=== PATIENT | female | born 1980 | race Caucasian/White ===

== ENCOUNTER 2017-10-25 20:33 | Emergency (ER) | payer MEDICAID, OTHER ==
[2017-10-25 20:50] VITALS: BP 124/84
[2017-10-25] MEDS ORDERED: Ipratropium 0.5MG/2.5ML NEB* 0.5 MG/2.5 ML NEB.SOLN INH ONE (21:04)
[2017-10-25] MEDS ORDERED: Albuterol 2.5 MG/3 ML NEB.SOL* (0.083%) INH ONE (21:04)
--- NOTE | 2017-10-25 21:04 | UC ---
Respiratory Complaint HPI - HPI Summary HPI Summary: C/O cough with SOB over the past 3 days. Getting worse and making anxiety worse. Congestion with sinus pain. Nebulizer has been helping. - History of Current Complaint Chief Complaint: UCGeneralIllness Stated Complaint: SOB Time Seen by Provider: 10/25/17 20:55 Hx Last Menstrual Period: 10/08/17 - Allergies/Home Medications Allergies/Adverse Reactions: Allergies Allergy/AdvReac Type Severity Reaction Status Date / Time Hydrocodone AdvReac Itching Verified 10/25/17 20:50 Home Medications: Home Medications Cyclobenzaprine TAB* [Flexeril 10 MG TAB*] 10 mg PO TID PRN 10/25/17 [History Confirmed 10/25/17] Escitalopram (NF) [Lexapro 20 mg (NF)] 20 mg PO DAILY 10/25/17 [History Confirmed 10/25/17] Ferrous Sulfate TAB* 325 mg PO DAILY 10/25/17 [History Confirmed 10/25/17] Loratadine [Claritin 10 MG CAP] 10 mg PO DAILY 10/25/17 [History Confirmed 10/25] Prazosin CAP* [Minipress CAP*] 1 mg PO BEDTIME 10/25/17 [History Confirmed 10/25] Vitamin [Calna] 1 tab PO DAILY 10/25/17 [History Confirmed 10/25/17] Zyrtec D 1 tab DAILY PRN 10/25/17 [History Confirmed 10/25/17] hydrOXYzine HCL TAB* [Atarax 25 MG TAB*] 25 mg PO QID PRN 10/25/17 [History Confirmed 10/25/17] PMH/Surg Hx/FS Hx/Imm Hx - Surgical History Surgical History: Yes Surgery Procedure, Year, and Place: tubal. 2004 - Social History Alcohol Use: None Substance Use Type: None Smoking Status (MU): Former Smoker When Did the Patient Quit Smoking/Using Tobacco: 5 years ago - Immunization History Most Recent Influenza Vaccination: 08/2017 Review of Systems Constitutional: Chills, Fatigue ENT: Sore Throat, Sinus Pain/Tenderness Respiratory: Shortness Of Breath, Cough Cardiovascular: Chest Pain Is Patient Immunocompromised?: No All Other Systems Reviewed And Are Negative: Yes Physical Exam Triage Information Reviewed: Yes Appearance: No Pain Distress, Well-Nourished, Ill-Appearing - mild Vital Signs: Initial Vital Signs Temp 98.9 F 10/25/17 20:37 Pulse 102 10/25/17 20:37 Resp 17 10/25/17 20:37 BP 124/84 10/25/17 20:37 Pulse Ox 100 10/25/17 20:37 Vital Signs Reviewed: Yes Eyes: Positive: Conjunctiva Clear ENT: Positive: Pharynx normal, TMs normal, Sinus tenderness - frontal Neck exam: Normal Respiratory: Positive: Wheezing - diffuse expiratory wheeze. Negative: Chest non-tender - tender anterior chest wall bilateral costochondral junction. Cardiovascular Exam: Normal Abdomen Description: Positive: Nontender Musculoskeletal Exam: Normal Neurological Exam: Normal Psychological Exam: Normal Skin Exam: Normal UC Diagnostic Evaluation - Laboratory O2 Sat by Pulse Oximetry: 100 Re-Evaluation - Re-Evaluation First Eval Re-Evaluation Time: 22:07 Change: Improved - breathing is better. Respiratory Course/Dx - Differential Dx/Diagnosis Differential Diagnosis/HQI/PQRI: Asthma, Lower Resp Infection, Sinusitis Provider Diagnoses: Acute URI. Acute bronchospasm. Acute sinusitis. Costochondritis Discharge - Discharge Plan Condition: Stable Disposition: HOME Prescriptions: Albuterol 2.5MG/3ML (0.083%)* [Ventolin 2.5 MG/3 ML NEB.ISIDRO*] 2.5 mg INH Q4H PRN #25 units PRN Reason: Wheezing Amoxicillin PO (*) [Amoxicillin 875 MG (*)] 875 mg PO BID #20 tab predniSONE TAB* [Deltasone TAB*] 20 mg PO DAILY #18 tab Patient Education Materials: Upper Respiratory Infection (ED), Bronchospasm (ED ), Prednisone (By mouth), Sinusitis (ED), Amoxicillin (By mouth) Forms: *Work Release Referrals: Xiang Laurent MD [Primary Care Provider] -
[2017-10-25] MEDS ORDERED: Amoxicillin PO (*) 500 MG CAP PO ONE (21:05)
[2017-10-25] MEDS ORDERED: methylPREDNISolone 125 MG* 2 ML VIAL IM ONE (21:06)
[2017-10-25] MEDS ORDERED: Indomethacin CAP* 25 MG CAP PO ONE (21:52)
[2017-10-25] MEDS ORDERED: Albuterol HFA INHALER* 8 gm MDI INH ONE (22:08)
== END 2017-10-25 22:28 | disposition home or self-care (01) ==
LOC: UCCORT 20:33
DX: J06.9 Acute upper respiratory infection, unspecified (principal); J98.01 Acute bronchospasm; J01.90 Acute sinusitis, unspecified; M94.0 Chondrocostal junction syndrome [Tietze]; Z88.5 Allergy status to narcotic agent; Z87.891 Personal history of nicotine dependence
CPT/HCPCS: 96372; 99213; A9270-GY; G0463; J2930; J7644

== ENCOUNTER 2017-10-29 17:47 | Emergency (ER) | payer OTHER ==
--- OUTSIDE RECORDS SUMMARY | 2017-10-29 17:57 | XMS REPORT ---
:1980 External Reference #:[id number] Author Organization [facility] Address [address] [place] [address] Phone [phone] Care Team Providers Name Role Phone Miguel Melendez MD Care Team Information Communications Intern Unavailable Miguel Melendez MD Primary Care Physician Unavailable Payers Type Date Identification Numbers Payment Provider Subscriber Commercial Policy Number: [id number] [facility] Latasha Diaz PayID: [id number] [address] [place] [address] [place] Expires: 2017 Policy Number: [id number] Medicaid [place] Latasha Diaz PayID: [id number] [address] [place] [address] Problems Date Description Provider Status Onset: 10/28/2017 Viremia Jhonathan Sabillon MD Active Onset: 09/09/2017 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, subs encntr Onset: 09/09/2017 Allergy to other foods Jhonathan Sabillon MD Active Family History Date Family Member(s) Problem(s) Comments General Unknown Social History Type Date Description Comments Smoke-Free Home is smoke-free Pets 2 cats Pets 1 dog Cigarette Use Former Cigarette Smoker Smoking Patient is a former smoker Allergies, Adverse Reactions, Alerts Date Description Reaction Status Severity Comments 09/09/2017 Hydrocodone active Medications Medication Date Status Form Strength Qnty SIG Indications Ordering Provider Claritin 09/09 Active Tablets 10mg 30tab one Z91.018 s tablet by Holly Sabillon MD mouth every morning Zyrtec Allergy 09/09 Active Tablets 10mg 30tab one Z91.018 s tablet by Holly Sabillon MD mouth every evening Auvi-Q 09/09 Active Solution 0.3mg/0.3 2unit Use as .018 Auto-Inje ML s directed Holly Sabillon MD ct as needed for anaphylax is. Escitalopram Active Unknown Hydroxyzine HCL Active Epipen 2-Deshawn Active Unknown Ferrous Fumarate Active Tablets 324(106Fe ) mg Prazosin HCL Active Capsules 1mg Active Cyclobenzaprine Active Tablets 10mg Unknown Vital Signs Date Vital Result Comment 10/28/2017 Height 56 inches 4'8" Weight 190.00 lb BMI (Body Mass Index) 42.6 kg/m2 Heart Rate 85 /min Body Temperature 97.7 F O2 % BldC Oximetry 97 % 09/09/2017 BP Systolic 122 mmHg BP Diastolic 85 mmHg Height 56 inches 4'8" Weight 189.00 lb BMI (Body Mass Index) 42.4 kg/m2 Heart Rate 96 /min Respiratory Rate 16 /min Body Temperature 97.9 F O2 % BldC Oximetry 98 % Results Test Date Test Result H/L Range Note Order 10/28/2017 BioFire Syndromic Testing <pending> Order 09/09/2017 Epinephrine Injector Training <pending> Procedures Date CPT Code Description Status 09/09/2017 76542 Education/Training PT Self-Management Each 30Minutes Completed Indiv PT Encounters Type Date Location Provider CPT E/M Dx Office Visit 10/28/2017 4:00[place] [address] Z91.018 B34.9 Office Visit 09/09/2017 10:30[place] [address] Z91.018 T78.00xD Plan of Care No Information Available
--- OUTSIDE RECORDS SUMMARY | 2017-10-29 17:58 | XMS REPORT ---
:1980 External Reference #:[id number] Author Organization [facility] Address [address] [place] [address] Phone [phone] Care Team Providers Name Role Phone Miguel Melendez MD Care Team Information Engineer First Assistant Unavailable Miguel Melendez MD Primary Care Physician Unavailable Payers Type Date Identification Numbers Payment Provider Subscriber Commercial Policy Number: [id number] [facility] Latasha Diaz PayID: [id number] [address] [place] [address] [place] Expires: 2017 Policy Number: [id number] Medicaid [place] Latasha Diaz PayID: [id number] [address] [place] [address] Problems Date Description Provider Status Onset: 09/09/2017 Anaphylactic reaction due to Jhonathan [...] 09/09 Active Solution 0.3mg/0.3 2unit Use as Z91.018 Auto-Inje ML s directed Holly Sabillon MD ct as needed for anaphylax is. Escitalopram Active Unknown Hydroxyzine HCL Active Unknown Epipen 2-Deshawn Active Ferrous Fumarate Active Tablets 324(106Fe ) mg [...] Date Test Result H/L Range Note Order 09/09/2017 Epinephrine Injector Training <pending> Procedures Date CPT Code Description Status 09/09/2017 21387 Education/Training PT Self-Management Each 30Minutes Completed Indiv PT Encounters Type Date Location Provider CPT E/M Dx Office Visit 09/09/2017 10:30[place] [address] Z91.018 T78.00xD Plan of Care 09/09/2017 - Jhonathan Sabillon MDZ91.018 Allergy to other foodsNew Medication:Claritin 10 mgZyrtec Allergy 10 mgAuvi-Q 0.3 mg/0.3MLT78.00xD Anaphylactic reaction due to unspecified food, subs encntr
--- NOTE | 2017-10-29 18:02 | UC ---
Cardiac HPI - HPI Summary HPI Summary: 37 year old female presents with complains of left sided chest pain. - History of Current Complaint Chief Complaint: UCGeneralIllness Stated Complaint: CHEST PAIN/ANXIETY Time Seen by Provider: 10/29/17 18:02 Hx Obtained From: Patient Hx Last Menstrual Period: 10/08/17 Onset/Duration: Sudden Onset Initial Severity: Moderate Current Severity: Moderate Chest Pain Location: Left Anterior - Allergy/Home Medications Allergies/Adverse Reactions: Allergies Allergy/AdvReac Type Severity Reaction Status Date / Time Hydrocodone AdvReac Itching Verified 10/29/17 18:07 PMH/Surg Hx/FS Hx/Imm Hx Previously Healthy: Yes - Surgical History Surgical History: Yes Surgery Procedure, Year, and Place: tubal. 2004 - Family History Known Family History: Positive: None - Social History Alcohol Use: None Substance Use Type: None Smoking Status (MU): Former Smoker When Did the Patient Quit Smoking/Using Tobacco: 5 years ago - Immunization History Most Recent Influenza Vaccination: 08/2017 Review of Systems Constitutional: Negative Skin: Negative Eyes: Negative ENT: Negative Respiratory: Negative Cardiovascular: Chest Pain Gastrointestinal: Negative Genitourinary: Negative Motor: Negative Neurovascular: Negative Musculoskeletal: Negative Neurological: Negative Psychological: Negative All Other Systems Reviewed And Are Negative: Yes Physical Exam Triage Information Reviewed: Yes Appearance: Ill-Appearing Vital Signs Reviewed: Yes Eye Exam: Normal ENT Exam: Normal Dental Exam: Normal Neck exam: Normal Neck: Positive: 1 Respiratory Exam: Normal Cardiovascular Exam: Normal Abdominal Exam: Normal Musculoskeletal Exam: Normal Neurological Exam: Normal Psychological Exam: Normal Skin Exam: Normal - Clinical Impression Provider Diagnoses: chest pain Discharge - Discharge Plan Condition: Stable Disposition: OTHER Discharge Disposition Comment: patient suggested to go to the er Patient Education Materials: Chest Pain (ED) Referrals: Xiang Laurent MD [Primary Care Provider] - Additional Instructions: patient suggested to go to the er for chest pain
[2017-10-29 18:07] VITALS: BP 123/83
== END 2017-10-29 18:25 ==
LOC: UCCORT 17:47
DX: R07.89 Other chest pain (principal); F41.9 Anxiety disorder, unspecified; Z88.5 Allergy status to narcotic agent; Z87.891 Personal history of nicotine dependence
CPT/HCPCS: 93005; 99212; G0463

== ENCOUNTER 2018-01-21 11:43 | Emergency (ER) | payer OTHER ==
[2018-01-21 12:26] VITALS: BP 124/85
--- NOTE | 2018-01-21 13:02 | UC ---
Lower Extremity/Ankle HPI - HPI Summary HPI Summary: pt is c/o pain to her R second toe and notes that it looks purple. it is painful to walk on. she can not recall any injury. she notes a hx of chronic R knee pain from tendinitis and that is worse from favoring the foot. pt denies hx diabetes and neuropathy. - History of Current Complaint Chief Complaint: UCLowerExtremity Stated Complaint: RIGHT KNEE/FOOT COMPLAINT Time Seen by Provider: 01/21/18 12:40 Hx Obtained From: Patient Hx Last Menstrual Period: 12/27/17 Pain Intensity: 5 Aggravating Factor(s): Standing, Ambulation Alleviating Factor(s): Rest Able to Bear Weight: No - Allergies/Home Medications Allergies/Adverse Reactions: Allergies Allergy/AdvReac Type Severity Reaction Status Date / Time hydrocodone Allergy Itching Verified 01/21/18 12:17 kiwi Allergy Anaphylatic Verified 01/21/18 12:17 Shock strawberry Allergy Anaphylatic Verified 01/21/18 12:17 Shock PMH/Surg Hx/FS Hx/Imm Hx - Additional Past Medical History Additional PMH: Low back pain, tendinitis R knee, allergies Psychological History: Anxiety, Depression, Post Traumatic Stress Disorder - Surgical History Surgical History: Yes Surgery Procedure, Year, and Place: tubal. 2004 - Family History Known Family History: Positive: None - Social History Alcohol Use: None Substance Use Type: None Smoking Status (MU): Former Smoker When Did the Patient Quit Smoking/Using Tobacco: 13 years ago - Immunization History Most Recent Influenza Vaccination: 08/2017 Vaccination Up to Date: Yes Review of Systems Constitutional: Negative Skin: Negative Eyes: Negative ENT: Negative Respiratory: Negative Cardiovascular: Negative Gastrointestinal: Negative Genitourinary: Negative Motor: Negative Neurovascular: Negative Musculoskeletal: Other: - Pain R knee and R 2nd toe Neurological: Negative Psychological: Negative Is Patient Immunocompromised?: No All Other Systems Reviewed And Are Negative: Yes Physical Exam Triage Information Reviewed: Yes Completion Of Physical Exam Limited Due To: Extremis Vital Signs: Initial Vital Signs Temp 98.5 F 01/21/18 12:21 Pulse 93 01/21/18 12:21 Resp 20 01/21/18 12:21 BP 124/85 01/21/18 12:21 Pulse Ox 98 01/21/18 12:21 Vital Signs Reviewed: Yes Eyes: Positive: Conjunctiva Clear ENT: Positive: Normal ENT inspection Neck: Positive: Supple, Nontender Respiratory: Positive: Lungs clear Cardiovascular: Positive: RRR, No Murmur Abdomen Description: Positive: Nontender, No Organomegaly, Soft Bowel Sounds: Positive: Present Musculoskeletal: Positive: Other: - LLE: bare for exam. Hip non tender. Knee without deformity or swelling, no laxity, tenderness is generalized. ankle non tender. foot has some very mild swelling and bruising to 2nd toe which is tender. rest of foot unremarkable. s/v/m is intact. Neurological: Positive: Alert Psychological: Positive: Age Appropriate Behavior Skin Exam: Normal Diagnostics - Radiology No standard instances Xray Interpretation: No Acute Changes Radiology Interpretation Completed By: Radiologist Lower Extremity Course/Dx - Course Course Of Treatment: knee has no laxity. no concern for infection and is c/w pt 's chronic pain, she will resume the gabriela. no concern for infection of gout R foot. Toe is bruised based on exam. No fx. will tx post op shoe. - Differential Dx/Diagnosis Provider Diagnoses: Acute flare chronic R knee pain. Contusion R 2nd toe Discharge - Sign-Out/Discharge Documenting (check all that apply): Discharge - Discharge Plan Condition: Stable Disposition: HOME Patient Education Materials: Knee Pain (ED), Foot Contusion (ED) Referrals: Xiang Laurent MD [Primary Care Provider] - 7 Days - Billing Disposition and Condition Condition: STABLE Disposition: HOME
--- NOTE | 2018-01-21 13:13 | RAD ---
HISTORY: Pain in right foot, attention second toe COMPARISONS: None VIEWS: 3, Frontal, lateral, and oblique views of the right foot FINDINGS: BONE DENSITY: Normal. BONES: There is no displaced fracture. JOINTS: There is no arthropathy. ALIGNMENT: There is no dislocation. SOFT TISSUES: Unremarkable. OTHER FINDINGS: None. IMPRESSION: NO ACUTE OSSEOUS INJURY. IF SYMPTOMS PERSIST, RECOMMEND REPEAT IMAGING.
== END 2018-01-21 13:43 | disposition home or self-care (01) ==
LOC: UCCORT 11:43
DX: S90.121A Contusion of right lesser toe(s) without damage to nail, initial encounter (principal); X58.XXXA Exposure to other specified factors, initial encounter; Y92.9 Unspecified place or not applicable; M25.561 Pain in right knee; G89.29 Other chronic pain; Z87.891 Personal history of nicotine dependence; Z88.5 Allergy status to narcotic agent
CPT/HCPCS: 99212; G0463

== ENCOUNTER 2018-03-20 08:53 | Day surgery (SDC) | payer OTHER ==
--- NOTE | 2018-03-19 06:29 | HP ---
PREOPERATIVE HISTORY AND PHYSICAL: DATE OF ADMISSION/SURGERY: 03/20/18 ATTENDING SURGEON: Deanna Brown MD * (DICTATED BY JUSTO RAMOS) PROCEDURE: Right knee arthroscopic surgery, possible MPFL reconstruction with allograft. CHIEF COMPLAINT: Right knee. 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 She has failed conservative measures such as a brace and therapy and has therefore, agreed to undergo a right knee arthroscopic surgery, possible MPFL reconstruction with allograft with Dr. Brown on 03/20/18. The patient states that she had a recent fall. She did have the brace on it. Denies any dislocation, but she tripped over a dog and has had mild increase in pain in the medial aspect of the knee since. PAST MEDICAL HISTORY: 1. Depression. 2. Anxiety. 3. PTSD. 4. Borderline personality disorder. PAST SURGICAL HISTORY: 1. . 2. Tubal ligation. Denies prior complications with anesthesia. MEDICATIONS: 1. Escitalopram 20 mg 1 by mouth every day. 2. Loratadine 10 mg 1 by mouth daily. 3. Prazosin 1 tab every night at bedtime. 4. vitamin once daily. 5. Ferrous sulfate 325 mg once daily. 6. Hydroxyzine 25 mg 1 to 2 tabs every 6 to 8 hours as needed for pruritus. 7. Cyclobenzaprine 10 mg 1 every 8 hours as needed for muscle spasms. 8. Montelukast 10 mg 1 by mouth every day. ALLERGIES: HYDROCODONE BITARTRATE, KIWI JUICE, STRAWBERRIES, and ADHESIVE. FAMILY HISTORY: She was adopted, unknown. SOCIAL HISTORY: She lives with her family. 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 She is a former smoker, quit 10 years ago. She denies alcohol use. She exercises occasionally. She is right hand dominant. REVIEW OF SYSTEMS: A 14-point review of systems was reviewed with the patient. Positive for current complaint; otherwise, negative. Denies chest pain, shortness of breath, fever, chills, history of DVT or PE, history of bleeding disorder, history of MRSA. PHYSICAL EXAMINATION GENERAL: A 37-year-old well-developed, well-nourished female, in no acute distress. Alert and oriented x3. Appropriate mood and affect. Appropriate balance and coordination of the lower extremities. HEENT: Normocephalic, atraumatic. PERRLA. Throat: Clear. NECK: Supple. CARDIO: Regular rate and rhythm. S1, S2. No murmurs, gallops, or rubs. No edema. ABDOMEN: Positive bowel sounds. Soft, nontender. NEURO: Alert and oriented x3. Cranial nerves grossly intact. Sensation is intact to light touch. MUSCULOSKELETAL: Right lower extremity, skin is intact. No warmth or erythema. Mild valgus deformity. Tenderness over the medial and lateral patellar facet. Range of motion 0 to 125. Mild effusion. +2 lateral glide of the patella with apprehension. Able to do a straight leg raise with minimal lag. Stable varus and valgus stress. Stable Kristin. Negative posterior drawer. Calves soft, nontender. +2 PT pulses. +5/5 strength with dorsiflexion and plantarflexion. Sensation is intact to light touch distally. DIAGNOSTIC STUDIES: Multiple view x-rays and MRI reveal no patella vianney, minimal arthritic changes, ACL and PCL intact, no obvious medial or lateral meniscus tears, possible stretching of the MPFL. It does not appear torn. Multiple view x-rays of the right knee obtained today in clinic reveal no evidence of acute fracture or dislocation after her injury. ASSESSMENT AND PLAN: The patient is scheduled to undergo a right knee arthroscopic surgery, possible MPFL reconstruction with allograft with Dr. Brown on 03/20/18. She will follow up 10 to 14 days postop for followup and suture removal. Percocet will be used for postop pain management. JUSTO RAMOS [id number]/[facility] #: [id number] [facility]ITALTonia
[~2018-03-20 08:53] MED LIST: Buffered Lidocaine 0.9% SYRIN* 5 ML/SYR SYRINGE INTRADERM ONE; Buffered Lidocaine 0.9% SYRIN* 5 ML/SYR SYRINGE ONE; Dexamethasone TAB* 4 MG ONE; Dexamethasone TAB* 4 MG PO ONE; DiMENhydriNATE IV* 50 MG/ML VIAL IV PUSH PRN; Famotidine IV* 10 MG/ML 2 ML (20 mg) IV ONE; Famotidine IV* 10 MG/ML 2 ML (20 mg) ONE; Morphine INJ* 2 MG/ML 1 ML CARPUJECT IV PRN; Naloxone* 0.4 MG/ML 1 ML VIAL IV PRN; Ondansetron INJ* 2 MG/ML VIAL ONE; Ondansetron ODT TAB* 4 MG ONE; PROCHLORPERAZINE INJ 5 MG/ML 2 ML VIAL IV PRN; Scopolamine 1.5 mg* PATCH TRANSDERM PRN; ceFAZolin 2 GM PREMIX (*) 2 GM/50 ML BAG IVPB ONE; fentaNYL* 50 MCG/ML 2 ML VIAL (100 MCG VIAL) IV PRN; oxyCODONE/Acetamin 5/325 MG* TAB PO PRN
[2018-03-20] MEDS ORDERED: Midazolam* 1 MG/ML 5 ML VIAL (5 MG) ONE (10:20)
[2018-03-20] MEDS ORDERED: fentaNYL* 50 MCG/ML 2 ML VIAL (100 MCG VIAL) ONE (10:20)
[2018-03-20] MEDS ORDERED: Lidocaine 1% MPF wEPI 200,000* 30 ML SDV ONE (11:06)
[2018-03-20] MEDS ORDERED: Bupivacaine 0.5% SDV PF* 30ML VIAL ONE (11:07)
[2018-03-20] MEDS ORDERED: PROCHLORPERAZINE INJ 5 MG/ML 2 ML VIAL ONE (11:33)
[2018-03-20] MEDS ORDERED: Lidocaine 2% PF * 5 ML VIAL ONE (11:33)
[2018-03-20] MEDS ORDERED: Ketorolac INJ* 30 MG/ML 1 ML VIAL ONE (11:33)
[2018-03-20] MEDS ORDERED: Propofol* 10 MG/ML 20 ML BTL IV PUSH ONE (11:33)
[2018-03-20] MEDS ORDERED: hydrALAZINE IV* 20 MG/ML VIAL ONE (11:56)
[2018-03-20] MEDS ORDERED: Labetalol IV* 5 MG/ML 20 ML VIAL ONE (11:56)
[2018-03-20] MEDS ORDERED: methylPREDNISolone ACETATE 80* 80 MG/ML 1 ML VIAL ONE (11:58)
[2018-03-20] MEDS ORDERED: oxyCODONE/Acetamin 5/325 MG* TAB ONE (13:18)
[2018-03-20 14:09] VITALS: BP 118/77
--- NOTE | 2018-03-21 09:54 | OP ---
OPERATIVE REPORT: DATE OF OPERATION: 03/20/18 DATE OF : 78 SURGEON: Deanna Brown MD MEAT SELECTOR: JUSTO Morales An veterinary technician assistant was needed for the entirety of the case for positioning, retraction, thought of possibly having to do a large open procedure in association with the case. PRE-OP DIAGNOSES: Right knee possible patellar instability with a lateral meniscus tear and persiste nt pain refractory to conservative management. POST-OP DIAGNOSIS: Demonstrates a lateral meniscus tear with significant impingement. OPERATIVE PROCEDURE: 1. Right knee arthroscopy with synovectomy, anteriorly medially, with a plica. 2. Partial lateral meniscectomy. 3. Lateral release. 4. Injection of 80 mg of Depo-Medrol. INDICATIONS: Latasha Diaz has had an over 10-year history of knee pain. She reports multiple sublu xations and dislocations. She has persistent pain. She feels giving away and has medially and later ally based pain. MRI was done that demonstrated no obvious signs or symptoms of dislocation. After extensive discussion of the risks and benefits of surgical versus nonoperative treatment, she has minerva cted to proceed with surgical treatment. We did discuss that I would do an examination under anesthe rudy to find out if she is actually unstable and if so, we can address that with an MPFL versus a medi al reefing with lateral release. We talked about possible meniscus surgery as well. Risks and benef its were discussed at length that included but are not limited to bleeding, infection, damage to nerv es, vessels, surrounding structures, wound nonhealing, persistent pain, need for further surgery, sca rring, stiffness, incomplete relief of symptoms, and risk of anesthesia. DESCRIPTION OF PROCEDURE: The patient was greeted in the preoperative area by the attending surgeon. Correct extremity was marked and consent was confirmed. The patient was brought back to the operat ing suite where she was placed in the supine position on the operating table. She underwent general anesthesia with LMA intubation, after which she was appropriately positioned in the bed. The lateral post was positioned. An unsterile tourniquet was placed high on the proximal thigh. An examination under anesthesia demonstrated range of motion 0 to 135 degrees, stable to varus-valgus stress, stabl e Kristin, 1+ anteromedial glide of the patella with a firm endpoint. No evidence of instability. T his was comparable to her contralateral side. There was no effusion. After appropriate surgical pause indicating site, side, procedure, and administration of antibiotics, the knee was intra-articularly injected with 1% lidocaine with epi. The lateral portal was made sha rply with an 11-blade. Scope was introduced into the joint. The joint was examined. The patellofem oral joint had grade 0 to 1 changes. There was no evidence of significant lateral subluxation. The scope was brought into the medial compartment. There was abundant synovitis and a plica medially wit h synovitis that extended anteriorly as well as around the patella itself. There was abrasion to the medial femoral condyle from the said plica. The anteromedial portal was made in an outside-in fashi on using an 18-gauge needle. Shaver was used to debride back the abundant synovitis as well as elect rocautery to maintain hemostasis. The medial compartment was examined. There were grade 0 changes i n the medial femoral condyle, medial plateau with a stable meniscus. The root was also visualized an d found to be intact. ACL and PCL were intact. There was some fraying of the cartilage about the no tch in the lateral aspect of the femoral condyle, which was debrided back using a shaver, but it was not a formal chondroplasty. The lateral compartment was examined. There were grade 1 to 2 changes i nvolving the lateral plateau and lateral femoral condyle had grade 0 changes. Lateral meniscus was i ntact and it was not torn, but there was fraying at the periphery, which was debrided back using the shaver. At this point, the synovectomy was completed using shaver and the electrocautery device to m aintain hemostasis. A small [id number] lateral release was done to gently balance the patell a to try to see if this ameliorates some of her symptoms. The wounds were copiously irrigated with s terile saline. The portals were closed with 3-0 nylon in an interrupted fashion. The knee was intra- articularly injected with 0.25% Marcaine plain as well as 80 mg of Depo- Medrol. Sterile dressings w ere applied. A Cryo/Cuff was placed. She was awoken from anesthesia and transferred to PACU in stab le condition. POSTOPERATIVE PLAN: She will be weightbearing as tolerated. She will be discharged on pain medicati on. DVT prophylaxis was considered, but deferred due to no previous personal or family history. I w ill see the patient back in 10 to 14 days. [id number]/[facility] #: [id number]
[2018-03-23] MEDS ORDERED: Scopolamine PATCH Remove* 1 NOTE MISC PATCH OFF ONE (05:49)
== END 2018-03-20 13:55 | disposition home or self-care (01) ==
LOC: OR 08:53
PROVIDERS: ATTEND Orthopaedic Surgery
DX: M23.200 Derangement of unspecified lateral meniscus due to old tear or injury, right knee (principal); M25.861 Other specified joint disorders, right knee; M67.51 Plica syndrome, right knee; M23.51 Chronic instability of knee, right knee; F41.8 Other specified anxiety disorders; F43.10 Post-traumatic stress disorder, unspecified; F60.3 Borderline personality disorder; Z87.891 Personal history of nicotine dependence; M25.461 Effusion, right knee
CPT/HCPCS: A9270-GY; J0360; J0690; J0780; J1040; J1885; J2001; J2250; J2704; J3010; J8540

== ENCOUNTER 2018-08-09 13:20 | Emergency (ER) | payer OTHER ==
[2018-08-09 14:22] VITALS: BP 124/85
[2018-08-09] MEDS ORDERED: Ketorolac INJ* 60 MG/2 ML VIAL IM ONE (15:02)
--- NOTE | 2018-08-09 15:32 | UC ---
UC General HPI - HPI Summary HPI Summary: PT IS C/O "MUSCLE TIGHTNESS" TO THE INSIDE OF HER R SHOULDER BLADE AFTER LIFTING AND MOVING 4 DAYS AGO. SELF TX'ING WITH MOTRIN AND FLEXERIL WITH NO RELIEF. NO TX TODAY. NO CP, COUGH OR SOB. - History of Current Complaint Chief Complaint: UCUpperExtremity Stated Complaint: RIGHT SHOULDER PAIN Time Seen by Provider: 08/09/18 14:54 Hx Obtained From: Patient Hx Last Menstrual Period: 08/06/18 Onset/Duration: Gradual Onset Timing: Constant Pain Intensity: 6 Aggravating: ANY TYPE OF MOVEMENT Associated Signs & Symptoms: Negative: Chest Pain, Fever, SOB, Wheezing - Allergy/Home Medications Allergies/Adverse Reactions: Allergies Allergy/AdvReac Type Severity Reaction Status Date / Time ondansetron [From Zofran] Allergy Severe ANAPHYLAXIS Verified 08/09/18 14:10 hydrocodone Allergy Itching Verified 08/09/18 14:10 kiwi Allergy Anaphylatic Verified 08/09/18 14:10 Shock strawberry Allergy Anaphylatic Verified 08/09/18 14:10 Shock Seasonal Allergies Allergy Sneezing Uncoded 08/09/18 14:10 Home Medications: Home Medications Vitamin TAB* 1 tab DAILY 08/09/18 [History Confirmed 08/09/18] buPROPion SR TAB* [Wellbutrin SR TAB*] 150 mg QAM 08/09/18 [History Confirmed ] PMH/Surg Hx/FS Hx/Imm Hx - Additional Past Medical History Additional PMH: ALLERGIES Psychological History: Anxiety, Depression - Surgical History Surgical History: Yes Surgery Procedure, Year, and Place: Tubal ligation 2004. 2004. RIGHT Knee February 2018 - Family History Known Family History: Positive: Unknown - Social History Occupation: Disabled Alcohol Use: None Substance Use Type: None Smoking Status (MU): Former Smoker When Did the Patient Quit Smoking/Using Tobacco: 13 years ago - Immunization History Most Recent Influenza Vaccination: 08/2017 Vaccination Up to Date: Yes Review of Systems Constitutional: Negative Skin: Negative Eyes: Negative ENT: Negative Respiratory: Negative Cardiovascular: Negative Gastrointestinal: Negative Genitourinary: Negative Motor: Negative Neurovascular: Negative Musculoskeletal: Other: - PAIN R MEDIAL SCAPULA MM Neurological: Negative Psychological: Negative All Other Systems Reviewed And Are Negative: Yes Physical Exam Triage Information Reviewed: Yes Appearance: Well-Appearing Vital Signs: Initial Vital Signs Temp 97.6 F 08/09/18 14:13 Pulse 98 08/09/18 14:13 Resp 16 08/09/18 14:13 BP 124/85 08/09/18 14:13 Pulse Ox 98 08/09/18 14:13 Vital Signs Reviewed: Yes Eyes: Positive: Conjunctiva Clear ENT: Positive: Normal ENT inspection Neck: Positive: Supple, No Lymphadenopathy, Other: - R trapzius muscle spasm with decreased rom to neck and R shoulder due to spasm's. Respiratory: Positive: Lungs clear, Normal breath sounds, No respiratory distress Cardiovascular: Positive: RRR, No Murmur Abdomen Description: Positive: Nontender, No Organomegaly, Soft Bowel Sounds: Positive: Present Musculoskeletal: Positive: No Edema, Other: - c=-spine is non tender. Neurological: Positive: Alert Psychological: Positive: Age Appropriate Behavior Skin Exam: Normal Skin: Negative: rashes Re-Evaluation - Re-Evaluation First Eval Change: Improved - improved rom post tx and pt notes less pain. Course/Dx - Course Course Of Treatment: no concern for spinal or cardiothoracic pathology. failed motrin thus will d/c and tx with prednisone/ pt to continue her flexeril routinely. - Differential Dx - Multi-Symptom Provider Diagnoses: R TRAPEZIUS MUSCLE SPASM Discharge - Sign-Out/Discharge Documenting (check all that apply): Patient Departure All imaging exams completed and their final reports reviewed: No Studies - Discharge Plan Condition: Stable Disposition: HOME Prescriptions: predniSONE TAB* [Deltasone 20 MG TAB*] 40 mg PO DAILY 5 Days #10 tab Patient Education Materials: Muscle Strain (ED) Referrals: Xiang Louis MD [Primary Care Provider] - Gerry Aparicio MD [Medical Doctor] - Additional Instructions: STOP THE MOTRIN. TAKE YOUR FLEXERIL 10MG THREE TIMES DAILY. FOLLOW UP WITH DR LOUIS OR DR APARICIO IN 5 DAYS FOR A RECHECK OR SOONER IF WORSE. - Billing Disposition and Condition Condition: STABLE Disposition: Home
== END 2018-08-09 15:42 | disposition home or self-care (01) ==
LOC: UCCORT 13:20
DX: M62.838 Other muscle spasm (principal); Z88.5 Allergy status to narcotic agent; Z88.8 Allergy status to other drugs, medicaments and biological substances; Z87.891 Personal history of nicotine dependence
CPT/HCPCS: 96372; 99212; G0463; J1885

== ENCOUNTER 2018-08-26 12:45 | Emergency (ER) | payer OTHER ==
[2018-08-26 13:12] VITALS: BP 129/84
[2018-08-26] MEDS ORDERED: Lidocaine 1%* 5 ML VIAL INJ ONE (13:16)
--- NOTE | 2018-08-26 13:41 | UC ---
Laceration HPI - HPI Summary HPI Summary: 37 yo F c/o laceration to navel. Patient had a belly ring which became caught on an object in a dog cage and was ripped from her abdomen, less than 1 hr ago. She now has 2 flaps which formerly formed a ring in her skin. no active bleeding. Last tetanus was 2015. family hx non-contributory - History Of Current Complaint Chief Complaint: UCSkin Stated Complaint: RIPPED OUT NAVEL PIERCING Time Seen by Provider: 08/26/18 13:12 Hx Last Menstrual Period: 08/06/18 Pain Intensity: 5 - Allergies/Home Medications Allergies/Adverse Reactions: Allergies Allergy/AdvReac Type Severity Reaction Status Date / Time ondansetron [From Zofran] Allergy Severe ANAPHYLAXIS Verified 08/26/18 12:57 hydrocodone Allergy Itching Verified 08/26/18 12:57 kiwi Allergy Anaphylatic Verified 08/26/18 12:57 Shock strawberry Allergy Anaphylatic Verified 08/26/18 12:57 Shock Seasonal Allergies Allergy Sneezing Uncoded 08/26/18 12:57 Home Medications: Home Medications Fluticasone NASAL SPRAY 50MCG* [Flonase NASAL SPRAY 50MCG*] 1 spray BOTH NARES DAILY 08/26/18 [History Confirmed 08/26/18] Naproxen Sodium [Naprelan 500 mg] 500 mg PO Q12H 08/26/18 [History Confirmed ] PMH/Surg Hx/FS Hx/Imm Hx Previously Healthy: Yes Psychological History: Post Traumatic Stress Disorder - Surgical History Surgical History: Yes Surgery Procedure, Year, and Place: Tubal ligation 2004. 2004. RIGHT Knee February 2018 - Family History Known Family History: Positive: None, Unknown - Social History Alcohol Use: None Substance Use Type: None Smoking Status (MU): Former Smoker When Did the Patient Quit Smoking/Using Tobacco: 13 years ago - Immunization History Most Recent Influenza Vaccination: 08/2017 Most Recent Tetanus Shot: 2016 Vaccination Up to Date: Yes Review of Systems Constitutional: Negative Skin: Other - lac All Other Systems Reviewed And Are Negative: Yes Physical Exam Triage Information Reviewed: Yes Appearance: Well-Appearing, No Pain Distress, Well-Nourished Vital Signs: Initial Vital Signs Temp 97.8 F 08/26/18 13:05 Pulse 108 08/26/18 13:05 Resp 18 08/26/18 13:05 BP 129/84 08/26/18 13:05 Pulse Ox 98 08/26/18 13:05 Vital Signs Reviewed: Yes Eyes: Positive: Conjunctiva Clear Respiratory: Positive: No respiratory distress, No accessory muscle use Abdominal Exam: Other - torn skin at navel Abdomen Description: Negative: Distended Musculoskeletal: Positive: Strength Intact Neurological: Positive: Alert Psychological: Positive: Normal Response To Family Skin Exam: Normal Laceration Repair - Laceration Repair 1 Description: Linear Laceration Size After Repair: Length (cm) - 0.25 Modified For Repair: No Type Injection: Local Anesthesia Used: 1.0% Lido Cleansing Completed Via Routine Prep: Yes Irrigation With Pressure Irrigation Device: Yes Closure Material: Sutures Closure Method: Single Layer Suture Of: Skin Suture Type: Prolene - 3 simple interupted sutures Laceration Course/Dx - Differential Dx - Laceration/Wound Differental Diagnoses: Laceration Provider Diagnoses: laceration Discharge - Sign-Out/Discharge Documenting (check all that apply): Patient Departure All imaging exams completed and their final reports reviewed: No Studies - Discharge Plan Condition: Stable Disposition: HOME Patient Education Materials: Laceration (ED), Care For Your Stitches (ED) Referrals: Xiang Laurent MD [Primary Care Provider] - Additional Instructions: Have sutures removed in 7 days - Billing Disposition and Condition Condition: STABLE Disposition: Home
== END 2018-08-26 14:26 | disposition home or self-care (01) ==
LOC: UCCORT 12:45
DX: S31.115A Laceration without foreign body of abdominal wall, periumbilic region without penetration into peritoneal cavity, initial encounter (principal); X58.XXXA Exposure to other specified factors, initial encounter; Z87.891 Personal history of nicotine dependence; Y92.9 Unspecified place or not applicable; Z88.8 Allergy status to other drugs, medicaments and biological substances; Z88.5 Allergy status to narcotic agent
CPT/HCPCS: 12001; 99212; G0463

== ENCOUNTER 2018-09-02 14:38 | Emergency (ER) | payer OTHER ==
[2018-09-02 14:53] VITALS: BP 124/84
--- NOTE | 2018-09-02 14:55 | UC ---
Skin Complaint HPI - HPI Summary HPI Summary: 37-year-old woman comes in to clinic today for suture removal from a laceration that occurred on August 26, 2018. Her bellybutton ring got ripped out and she had a laceration there that was sutured with 3 sutures here at the urgent care clinic. His been no drainage no pain no erythema. - History of Current Complaint Time Seen by Provider: 09/02/18 14:46 Stated Complaint: SUTURE REMOVAL Hx Last Menstrual Period: 08/06/18 - Allergy/Home Medications Allergies/Adverse Reactions: Allergies Allergy/AdvReac Type Severity Reaction Status Date / Time ondansetron [From Zofran] Allergy Severe ANAPHYLAXIS Verified 08/26/18 12:57 hydrocodone Allergy Itching Verified 08/26/18 12:57 kiwi Allergy Anaphylatic Verified 08/26/18 12:57 Shock strawberry Allergy Anaphylatic Verified 08/26/18 12:57 Shock Seasonal Allergies Allergy Sneezing Uncoded 08/26/18 12:57 Review of Systems Constitutional: Negative Skin: Other - SEE HPI Eyes: Negative ENT: Negative Respiratory: Negative Cardiovascular: Negative Gastrointestinal: Negative Motor: Negative Neurovascular: Negative Musculoskeletal: Negative Neurological: Negative Psychological: Negative Is Patient Immunocompromised?: No All Other Systems Reviewed And Are Negative: Yes PMH/Surg Hx/FS Hx/Imm Hx Previously Healthy: Yes Psychological History: Depression - Surgical History Surgical History: Yes Surgery Procedure, Year, and Place: Tubal ligation 2004. 2004. RIGHT Knee February 2018 - Family History Known Family History: Positive: None, Unknown Negative: Diabetes - Social History Alcohol Use: None Substance Use Type: None Smoking Status (MU): Former Smoker When Did the Patient Quit Smoking/Using Tobacco: 13 years ago - Immunization History Most Recent Influenza Vaccination: 08/2017 Most Recent Tetanus Shot: 2016 Vaccination Up to Date: Yes Physical Exam Triage Information Reviewed: Yes Appearance: Well-Appearing, No Pain Distress, Well-Nourished Eye Exam: Normal Eyes: Positive: Conjunctiva Clear Neck exam: Normal Neck: Positive: Supple Respiratory: Positive: No respiratory distress Musculoskeletal Exam: Normal Musculoskeletal: Positive: Strength Intact, ROM Intact Neurological Exam: Normal Neurological: Positive: Alert, Muscle Tone Normal Psychological Exam: Normal Psychological: Positive: Normal Response To Family, Age Appropriate Behavior Skin: Positive: Other - On the superior aspect of the umbilicus there is a healing wound with 3 interrupted sutures. There is no drainage no erythema. I removed the sutures. Course/Dx - Diagnoses Provider Diagnoses: SUTURE REMOVAL UMBILICUS Discharge - Sign-Out/Discharge Documenting (check all that apply): Patient Departure All imaging exams completed and their final reports reviewed: No Studies - Discharge Plan Condition: Stable Disposition: HOME Patient Education Materials: Stitches Removal (ED) Referrals: Xiang Laurent MD [Primary Care Provider] - Additional Instructions: FOLLOW UP WITH YOUR DOCTOR IF NOT COMPLETELY IMPROVED. GET RECHECKED FOR ANY WORSENING OF YOUR CONDITION OR QUESTIONS OR CONCERNS. - Billing Disposition and Condition Condition: STABLE Disposition: Home
== END 2018-09-02 14:58 | disposition home or self-care (01) ==
LOC: UCCORT 14:38
DX: S31.115D Laceration without foreign body of abdominal wall, periumbilic region without penetration into peritoneal cavity, subsequent encounter (principal); Z88.8 Allergy status to other drugs, medicaments and biological substances; Z88.5 Allergy status to narcotic agent; Z91.018 Allergy to other foods; Z91.048 Other nonmedicinal substance allergy status; Z87.891 Personal history of nicotine dependence; X58.XXXD Exposure to other specified factors, subsequent encounter

== ENCOUNTER 2018-09-11 15:28 | Emergency (ER) | payer OTHER ==
[2018-09-11 15:45] VITALS: BP 137/86
[2018-09-11] MEDS ORDERED: Ibuprofen TAB* 400 MG PO ONE (16:14)
--- NOTE | 2018-09-11 16:54 | UC ---
Knee Pain HPI - HPI Summary HPI Summary: Pt c/o sudden onset of right knee pain and decreased ROM after moving leg this morning in bed and "swinging it under her blankets" with sudden onset of pain, swelling and decreased ROM. Pt had meniscus repair previously on right knee. - History of Current Complaint Chief Complaint: UCLowerExtremity Stated Complaint: RIGHT KNEE PAIN Time Seen by Provider: 09/11/18 15:45 Hx Obtained From: Patient Hx Last Menstrual Period: 09/03/18 ?: No Onset/Duration: Sudden Onset, Lasting Hours, Still Present Severity Initially: Moderate Severity Currently: Moderate Pain Intensity: 6 Character: Dull, Aching, Stiffness Aggravating Factor(s): Movement, Weight Bearing, Prolonged Standing, Stairs Alleviating Factor(s): Rest, Position Associated Signs And Symptoms: Positive: Negative Able to Bear Weight: Yes - minimal - Risk Factors Septic Arthritis Risk Factor: Negative Gout Risk Factor: Negative - Allergies/Home Medications Allergies/Adverse Reactions: Allergies Allergy/AdvReac Type Severity Reaction Status Date / Time ondansetron [From Zofran] Allergy Severe ANAPHYLAXIS Verified 09/11/18 15:42 hydrocodone Allergy Itching Verified 09/11/18 15:42 kiwi Allergy Anaphylatic Verified 09/11/18 15:42 Shock strawberry Allergy Anaphylatic Verified 09/11/18 15:42 Shock Seasonal Allergies Allergy Sneezing Uncoded 09/11/18 15:42 PMH/Surg Hx/FS Hx/Imm Hx Previously Healthy: Yes - Surgical History Surgical History: Yes Surgery Procedure, Year, and Place: Tubal ligation 2004. 2004. RIGHT Knee February 2018 - Family History Known Family History: Positive: None, Unknown Negative: Diabetes - Social History Occupation: Works From/At Home Lives: With Family Alcohol Use: None Substance Use Type: None Smoking Status (MU): Former Smoker Have You Smoked in the Last Year: No When Did the Patient Quit Smoking/Using Tobacco: 13 years ago - Immunization History Most Recent Influenza Vaccination: 08/2017 Most Recent Tetanus Shot: 2016 Vaccination Up to Date: Yes Review of Systems All Other Systems Reviewed And Are Negative: Yes Constitutional: Positive: Negative Skin: Positive: Negative Eyes: Positive: Negative ENT: Positive: Negative Respiratory: Positive: Negative Cardiovascular: Positive: Negative Gastrointestinal: Positive: Negative Genitourinary: Positive: Negative Motor: Positive: Decreased ROM - right knee, Weakness - right knee Neurovascular: Positive: Negative Musculoskeletal: Positive: Arthralgia, Decreased ROM, Edema, Myalgia Neurological: Positive: Negative Psychological: Positive: Negative Is Patient Immunocompromised?: No Physical Exam Triage Information Reviewed: Yes Appearance: Pain Distress Vital Signs: Initial Vital Signs Temp 97.2 F 09/11/18 15:41 Pulse 88 09/11/18 15:41 Resp 16 09/11/18 15:41 BP 137/86 09/11/18 15:41 Pulse Ox 98 09/11/18 15:41 Vital Signs Reviewed: Yes Eye Exam: Normal ENT Exam: Normal Dental: Positive: Gross Decay/Caries @ Neck exam: Normal Respiratory Exam: Normal Respiratory: Positive: No respiratory distress Musculoskeletal: Positive: ROM Limited @ - right knee secondary to pain, no erythema, no swelling, lucas test negative Neurological Exam: Normal Psychological Exam: Normal Skin Exam: Normal Diagnostics - Laboratory Diagnostic Studies Completed/Ordered: IMPRESSION: Normal knee radiograph as described above. If the patient's symptoms persist, follow-up imaging is recommended Knee Pain Course/Dx - Differential Dx/Diagnosis Differential Diagnosis/HQI/PQRI: DVT, Fracture (Closed), Internal Derangement Of Knee Provider Diagnoses: right knee pain Discharge - Sign-Out/Discharge Documenting (check all that apply): Patient Departure All imaging exams completed and their final reports reviewed: Yes - Discharge Plan Condition: Stable Disposition: HOME Patient Education Materials: Knee Pain (ED) Referrals: Xiang Laurent MD [Primary Care Provider] - If Needed Deanna Brown MD [Medical Doctor] - As Soon As Possible - Billing Disposition and Condition Condition: STABLE Disposition: Home
== END 2018-09-11 17:14 | disposition home or self-care (01) ==
LOC: UCCORT 15:28
DX: M25.561 Pain in right knee (principal); Z88.5 Allergy status to narcotic agent; Z88.8 Allergy status to other drugs, medicaments and biological substances; Z87.891 Personal history of nicotine dependence
CPT/HCPCS: 99213; A9270-GY; G0463

== ENCOUNTER 2019-03-25 18:04 | Emergency (ER) | payer OTHER ==
--- OUTSIDE RECORDS SUMMARY | 2019-03-25 18:16 | XMS REPORT | Continuity of Care Document ---
:1980 External Reference #:[id number] Author Name Amanda Medina Care Team Providers Name Role Phone Xiang Laurent M.D. Primary Care Physician Unavailable Payers Date Identification Numbers Payment Provider Subscriber Policy Number: [id number] Santiago Diaz Group Number: [id number] [address] PayID: [id number] [place] [address] Problems Active Problems Provider Date Derangement of knee Deanna Brown MD Onset: 03/18/2019 Contusion of knee Deanna Brown MD Onset: 01/12/2019 Sprain of knee and leg Deanna Brown MD Onset: 09/15/2018 Synovitis and tenosynovitis Deanna Brown MD Onset: 05/28/2018 Current tear of medial cartilage AND/OR meniscus Deanna Brown MD Onset: of knee Complex tear of medial meniscus, current injury, Deanna Brown MD Onset: right knee, subsequent encounter Chronic instability of knee, right knee Deanna Brown MD Onset: 02/17/2018 Knee joint effusion Deanna Brown MD Onset: 02/17/2018 Family History Date Family Member(s) Observation Comments General No Current Problems Social History Type Date Description Comments Sex Unknown Marital Status Single Lives With Family 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 Smoking Status Reviewed: 03/18/19 But is using a non nicotine base that she vapes. Exercise Type/Frequency Exercises regularly Allergies, Adverse Reactions, Alerts Active Allergies Reaction Severity Comments Date Hydrocodone Bitartrate 01/26/2018 Kiwi Juice 01/26/2018 Strawberries 01/26/2018 Adhesive 01/26/2018 Medications Active Medications SIG Qnty Indications Ordering Date Provider Wheelchair regular 1uneric Garrett, 09/16/2018 [facility] wheelchair New dx:right knee pain Escitalopram Oxalate 1 by mouth every Unknown 20mg day Tablets Cetirizine HCL 1 by mouth every Unknown 10mg Tablets day Prazosin HCL 1 by mouth every 90caps Unknown 5mg Capsules day One Daily once a day Unknown Tablets Ferrous Sulfate take 1 tablet Unknown 325(65Fe) once daily. mg Tablets DR Hydroxyzine HCL 1-2 tablets by Unknown 25mg mouth every 6-8 Tablets hours as needed for pruritis. Cyclobenzaprine HCL 1 tablet by mouth Unknown 10mg q8 hours as Tablets needed muscle spasms Montelukast Sodium 1 by mouth every Unknown 10mg day Tablets Ria Allergy 1 tab by mouth Unknown 180mg every day Tablets History Medications Oxycodone-Acetaminophen 1-2 tabs by 30tabs Deanna Brown, 03/18/2018 - 5-325mg Tablets mouth every MD 05/05/2018 4-6 hours as needed for post op pain Loratadine 1 by mouth Unknown - 10mg Tablets every day 02/22/2019 Medications Administered in Office Medication SIG Qnty Indications Ordering Provider Date Celestone 3 mg and 3mg Gerry Aparicio MD 02/23/2019 Injection Records Fee Deanna Brown MD 11/17/2018 Injection Triamcinolone (Kenalog) Deanna Brown MD 10/08/2018 Injection Vital Signs Date Vital Result Comment 03/18/2019 3:03pm Height 64 inches 5'4" Weight 209.00 lb BP Systolic 134 mmHg BP Diastolic 82 mmHg Respiratory Rate 15 /min Pain Level 8 BMI (Body Mass Index) 35.9 kg/m2 03/01/2019 1:58pm Height 64 inches 5'4" Heart Rate 96 /min BP Systolic Sitting 122 mmHg BP Diastolic Sitting 96 mmHg Respiratory Rate 16 /min Pain Level 6 02/23/2019 11:38am Height 64 inches 5'4" Heart Rate 94 /min BP Systolic Sitting 130 mmHg BP Diastolic Sitting 86 mmHg Respiratory Rate 16 /min Pain Level 6 O2 % BldC Oximetry 97 % 02/09/2019 3:57pm Height 64 inches 5'4" Weight 205.00 lb BP Systolic 132 mmHg BP Diastolic 72 mmHg Respiratory Rate 16 /min Body Temperature 97.1 F Pain Level 0 BMI (Body Mass Index) 35.2 kg/m2 01/22/2019 11:06am Height 64 inches 5'4" Weight 205.00 lb patient stated Heart Rate 100 /min BP Systolic 128 mmHg BP Diastolic 90 mmHg Respiratory Rate 18 /min Body Temperature 97.7 F Pain Level 7 BMI (Body Mass Index) 35.2 kg/m2 01/12/2019 2:25pm Height 64 inches 5'4" Weight 207.00 lb Heart Rate 87 /min Body Temperature 96.8 F Pain Level 6 O2 % BldC Oximetry 98 % BMI (Body Mass Index) 35.5 kg/m2 10/08/2018 1:59pm Height 64 inches 5'4" Heart Rate 116 /min BP Systolic 118 mmHg BP Diastolic 72 mmHg Body Temperature 97.5 F Pain Level 5 09/15/2018 2:41pm Height 64 inches 5'4" Heart Rate 84 /min Respiratory Rate 17 /min Pain Level 6 05/28/2018 10:13am Height 64 inches 5'4" Weight 203.00 lb BP Systolic 128 mmHg BP Diastolic 72 mmHg Respiratory Rate 18 /min Pain Level 1 BMI (Body Mass Index) 34.8 kg/m2 04/02/2018 9:06am Height 64 inches 5'4" Weight 203.00 lb BP Systolic 136 mmHg BP Diastolic 80 mmHg Respiratory Rate 18 /min Body Temperature 98.2 F Pain Level 2 BMI (Body Mass Index) 34.8 kg/m2 03/17/2018 9:36am Height 64 inches 5'4" Weight 203.00 lb Heart Rate 100 /min BP Systolic 110 mmHg BP Diastolic 82 mmHg Body Temperature 97.4 F Pain Level 6 BMI (Body Mass Index) 34.8 kg/m2 02/17/2018 2:19pm Height 64 inches 5'4" Weight 195.00 lb BP Systolic 128 mmHg BP Diastolic 70 mmHg Respiratory Rate 18 /min Pain Level 5 BMI (Body Mass Index) 33.5 kg/m2 02/10/2018 1:06pm Height 64 inches 5'4" Weight 195.00 lb BP Systolic 138 mmHg BP Diastolic 82 mmHg Respiratory Rate 18 /min Body Temperature 98.1 F Pain Level 6 BMI (Body Mass Index) 33.5 kg/m2 01/26/2018 10:15am Height 64 inches 5'4" Weight 195.00 lb Heart Rate 70 /min BP Systolic Sitting 128 mmHg BP Diastolic Sitting 68 mmHg Respiratory Rate 16 /min Pain Level 6 ibuprofen for pain BMI (Body Mass Index) 33.5 kg/m2 Results Test Date Facility Test Result H/L Range Note Arthritis Panel 02/10/2018 [facility] Erythrocyte Sed 12 mm/Hr N 0-[address] [place] [address] [phone] Uric Acid 4.8 mg/dL N 2.3-6.6 Anti-Nuclear Antibody 0.7 U 1 Cyclic Citrullinated Peptide <15.6 U 2 Interpretation See Comment 3 Rheumatoid Factor <10 IU/mL 0-14 4 1 REFERENCE VALUE <=1.0 (Negative) 2 REFERENCE VALUE <20.0 (Negative) 3 Tests for antibodies to dsDNA and UNRULY antigens are not performed automatically unless the STACEY result is > or= 3.0 U. Studies performed at [facility] indicate that positive STACEY results <3.0 U are rarely accompanied by positive second order tests. Test Performed by: [facility] - [address] [address] 4 Performed by [email or web address], [address] [place] [id number] [email or web address], Carrington Lundberg MD - Lab. Director Test Performed by: [email or web address] [address] [place] [address] Procedures Date Code Description Status 02/23/2019 28010 Inject/Drain Joint/Bursa Major W/O US Completed 10/08/2018 92931 Inject/Drain Joint/Bursa Major W/O US Completed 03/20/2018 76091 Arthroscopy,Knee,Meniscectomy Medial Or Lateral Completed 03/20/2018 52016 Arthroscopy,Knee,Meniscectomy Medial Or Lateral Completed Encounters Type Date Location Provider Dx Diagnosis Office Visit 03/01/2019 Cipriano Aparicio, M22.2x1 [facility] 1:45p [facility] disorders, right knee AT [place] M25.461 Effusion, right knee M25.561 Pain in right knee Office Visit 02/23/2019 Orthopedic Gerry Medley M22.2x1 [facility] 11:30a [facility] Aparicio MD disorders, right AT [place] knee M25.461 Effusion, right knee M65.861 Other synovitis and tenosynovitis, right lower leg Office Visit 02/09/2019 3:30p Orthopedic Deanna Brown, S83.91xA Sprain of Services Of unspecified site [facility] of right knee, initial encounter M65.9 Synovitis and tenosynovitis, unspecified Office Visit 01/22/2019 11:00a Orthopedic Deanna Brown, S83.91xA Sprain of Services Of unspecified site C.[facility]. of right knee, initial encounter M65.9 Synovitis and tenosynovitis, unspecified Office Visit 01/12/2019 2:15p Cipriano Brown, S83.91xA Sprain of Services Of unspecified site C.M.A. of right knee, initial encounter S80.01xA Contusion of right knee, initial encounter Office Visit 10/08/2018 2:00p Cipriano Brown M65.9 Synovitis and Services Of MD wilson, C.M.A. unspecified S83.91xA Sprain of unspecified site of right knee, initial encounter M25.561 Pain in right knee Office Visit 09/15/2018 2:30p Cipriano Brown M65.9 Synovitis and Services Of MD wilson, C.M.A. unspecified M25.461 Effusion, right knee S83.91xA Sprain of unspecified site of right knee, initial encounter Office Visit 02/17/2018 2:15p Orthopedic Deanna Brown, M23.51 Chronic Services Of instability of C.M.A. knee, right knee M25.461 Effusion, right knee S83.231A Complex tear of medial mensc, current injury, r knee, init Office Visit 02/10/2018 1:00p Orthopedic Deanna Brown, M23.51 Chronic Services Of instability of C.M.A. knee, right knee M25.461 Effusion, right knee Office Visit 01/26/2018 Orthopedic Gerry Medley M22.2x1 [facility] 10:15a [facility] Farzad Aparicio MD disorders, right AT [place] knee Plan of Treatment Future Appointment(s):04/16/2019 10:15 am - Deanna Brown MD at [facility]03/18/2019 - Deanna Brown, MDM22.2x1 [facility]ell[facility]emoral disorders , right kneeM25.461 Effusion, right kneeS83.91xA Sprain of unspecified site of right knee, initial encounterNew Therapy:Physical TherapyFollow up:Follow up: 4-5 weeks
--- OUTSIDE RECORDS SUMMARY | 2019-03-25 18:16 | XMS REPORT | Continuity of Care Document ---
:1980 External Reference #:[id number] Demographics Address [birth year][address] [address] Home Phone [phone] Mobile Phone [phone] Preferred Language en Marital Status Not or Yazidi Affiliation Unknown Race White Ethnic Group Not or Author Name Yanni Hung Care Team Providers Name Role Phone Xiang Laurent MD Care Team Information Media Services Director Unavailable Xiang Laurent MD Primary Care Physician Unavailable Payers Date Identification Numbers Payment Provider Subscriber Policy Number: [id number] [facility] Latasha Diaz PayID: [id number] [address] [place] [address] Family History Date Family Member(s) Observation Comments Father 55 Father Unknown Mother due to Unknown Causes () - unknown Social History Type Date Description Comments Sex Unknown Tobacco Use Start: Unknown End: Used To Smoke Cigarettes But Unknown Quit. ETOH Use Rare Use Of Alcohol Recreational Drug Use Never Used Drugs Allergies, Adverse Reactions, Alerts Active Allergies Reaction Severity Comments Date Hydrocodone Itching Moderate 01/27/2019 Strawberries Difficulty breathing, Facial swelling, Severe 01/27/2019 Hives Kiwi Difficulty breathing, Facial swelling, Severe 01/27/2019 Hives Medications Active Medications SIG Qnty Indications Ordering Provider Date Tramadol HCL 1-2. tab q4h. for 20tabs José Miguel Remy, 03/02/2019 50mg pain M.D. Tablets Xyzal Allergy 24HR 1 by mouth every Unknown 5mg day Tablets Flonase Allergy 2 sprays each Unknown Relief nostril twice 50mcg/Act daily Suspension Nasacort Allergy 24HR 2 squirts each Unknown nostril every day 55mcg/Act Aerosol Bupropion HCL ER (SR) 1 Unknown 150mg Tablets ER 12HR Hydroxyzine HCL Unknown 10mg Tablets Claritin 1 by mouth every Unknown 10mg Capsules day Montelukast Sodium 1 by mouth every Unknown 10mg day Tablets Prazosin HCL Unknown 1mg Capsules Zyrtec Allergy 1 by mouth every Unknown 10mg day Capsules Ferrous Sulfate 1 by mouth 3 Unknown times a day 325(65Fe) mg Tablets Vital Signs Date Vital Result Comment 03/09/2019 11:20am Weight 209.00 lb Height 64 inches 5'4" BMI (Body Mass Index) 35.9 kg/m2 BP Systolic 134 mmHg BP Diastolic 87 mmHg Heart Rate 103 /min O2 % BldC Oximetry 98 % Body Temperature 95.6 F Pain Level 6 01/27/2019 11:54am Weight 203.00 lb Height 64 inches 5'4" BMI (Body Mass Index) 34.8 kg/m2 BP Systolic 129 mmHg BP Diastolic 86 mmHg Heart Rate 102 /min O2 % BldC Oximetry 96 % Body Temperature 97.6 F Crosby Score 9 Neck Circumference in inches 15 Pain Level 0 Procedures Date Code Description Status 03/02/2019 87475 Septoplasty Completed 03/02/2019 89010 Exc.Turbinate/Partial Or Complete Completed 01/27/2019 64332 Fiberoptic Laryngoscopy,Diag. Completed Encounters Type Date Location Provider Dx Diagnosis Office Visit 01/27/2019 Main Office José Miguel Remy M.D. J34.2 Deviated nasal 11:45a septum G47.9 Sleep disorder, unspecified R06.83 Snoring J34.3 Hypertrophy of nasal turbinates J31.0 Chronic rhinitis Plan of Treatment Future Appointment(s):06/09/2019 11:30 am - Sherry Tobias NP at Main Office
--- OUTSIDE RECORDS SUMMARY | 2019-03-25 18:16 | XMS REPORT | Continuity of Care Document ---
:1980 External Reference #:[id number] Demographics Address [birth year][address] [address] Mobile Phone [phone] Email Address Preferred Language en Marital Status Not or Samaritan Affiliation Unknown Race White Ethnic Group Not or Author Name Marty Juárez Care Team Providers Name Role Phone Xiang Laurent M.D. 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 Smoking Status Reviewed: 03/01/19 But is using a non nicotine base that she vapes. Exercise Type/Frequency Exercises regularly Allergies, Adverse Reactions, Alerts Active Allergies Reaction Severity Comments Date Hydrocodone Bitartrate 01/26/2018 Kiwi Juice 01/26/2018 Strawberries 01/26/2018 Adhesive 01/26/2018 Medications Active Medications SIG Qnty Indications Ordering Date Provider Wheelchair regular 1uneric Garrett, 09/16/2018 [facility] wheelchair New dx:right knee pain Escitalopram Oxalate [...] Triamcinolone (Kenalog) Deanna Brown MD 10/08/2018 Injection Immunizations Description No Information Available Vital Signs Date Vital Result Comment 03/01/2019 1:58pm Height 64 inches 5'4" Heart [...] Result H/L Range Note Arthritis Panel 02/10/2018 [facility] Erythrocyte Sed 12 mm/Hr N 0-[address] [place] [address] [phone] Uric Acid 4.8 mg/dL N 2.3-6.6 Anti-Nuclear Antibody 0.7 U 1 Cyclic Citrullinated Peptide <15.6 U 2 Interpretation See Comment 3 Rheumatoid Factor <10 IU/mL 0-14 4 1 REFERENCE VALUE <=1.0 (Negative) 2 REFERENCE VALUE <20.0 (Negative) 3 Tests for antibodies to dsDNA and UNRULY antigens are not performed automatically unless the STACEY result is > or= 3.0 U. Studies performed at [facility] indicate that positive STACEY results <3.0 U are rarely accompanied by positive second order tests. Test Performed by: [address] [address] Performed by [employer], [address] [place] [id number] [email or web address], Carrington Lundberg MD - Lab. Director Test Performed by: [employer] [address] [place] [address] Procedures Date Code Description Status 02/23/201973886 Inject/Drain Joint/Bursa Major W/O US Completed 10/08/2018 Inject/Drain Joint/Bursa Major W/O US Completed 03/20/2018 59784 Arthroscopy,Knee,Meniscectomy Medial Or Lateral Completed 03/20/2018 86356 Arthroscopy,Knee,Meniscectomy Medial Or Lateral Completed Encounters Type Date Location Provider Dx Diagnosis Office Visit 02/09/2019 Orthopedic Deanna Brown, S83.91xA Sprain of 3:30p Services Of Jesus Alberto BELLO unspecified site of right knee, initial encounter M65.9 Synovitis and tenosynovitis, unspecified Office Visit 01/22/2019 11:00a Orthopedic Deanna Brown S83.91xA Sprain of Services Of unspecified site C.M.A. of right knee, initial encounter M65.9 Synovitis and tenosynovitis, unspecified Office Visit 01/12/2019 2:15p Orthopedic Deanna Brown S83.91xA Sprain of Services Of unspecified site C.M.A. of right knee, initial encounter S80.01xA Contusion of right knee, initial encounter Office Visit 10/08/2018 2:00p Cipriano Brown M65.9 Synovitis and Services Of tenosynovibeverly, C.M.A. unspecified S83.91xA Sprain of unspecified site of right knee, initial encounter M25.561 Pain in right knee Office Visit 09/15/2018 2:30p Cipriano Brown M65.9 Synovitis and Services Of tenosynovibeverly, C.M.A. unspecified M25.461 Effusion, right knee S83.91xA Sprain of unspecified site of right knee, initial encounter Office Visit 02/17/2018 2:15p Cipriano Brown M23.51 Chronic Services Of instability of C.M.A. knee, right knee M25.461 Effusion, right knee S83.231A Complex tear of medial mensc, current injury, r knee, init Office Visit 02/10/2018 1:00p Orthopedic Deanna Brown M23.51 Chronic Services Of instability of C.M.A. knee, right knee M25.461 Effusion, right knee Office Visit 01/26/2018 Orthopedic Gerry Medley M22.2x1 [facility]ellofemoral 10:15a Services Of Farzad Aparicio MD disorders, right AT [place] knee Plan of Treatment Future Appointment(s):03/18/2019 2:30 pm - Deanna Brown MD at [facility].03/01/2019 - Gerry Aparicio, MDM22.2x1 Patellofemoral disorders, right kneeNew Therapy:Physical TherapyFollow up:Follow up: kate in 2-3 memmoE41.461 Effusion, right knee
[2019-03-25 18:58] VITALS: BP 118/79
--- NOTE | 2019-03-25 19:03 | UC ---
Knee Pain HPI - HPI Summary HPI Summary: 38 y/o female presents to the urgent care c/o RT knee pain s/p sudden turn while doing a heavy lifting about 1 hr ago. Pt reports she was packing and lifting heavy boxes since she is moving to another place today. Pt reports Hx of RT knee meniscus repair in 02/2018 w/ DR Brown. She did an MRI and X-ray on which were negative, She saw Dr Brown last week and she referred her for physical Therapy which she was going to start today. Pt also states several injuries to her RT knee in the past since age 11 when she was tackled by a football player. Pt states pain is sharp w/ certain movement, 8/10 and unable to bear weight due to pain, She also has RT side lower back pain which radiated to her RT knee. She has Hx of Sciatica. Pt usually takes Tramadol, Naproxen and [place] for pain, But she has not taken anything today for pain. Pt denies fever, numbness or tingling sensation over the RT lower extremity, SOB , chest pain,abdominal pain, N/V/D. LMP: 02/24/2019, but she declines test. - History of Current Complaint Chief Complaint: UCLowerExtremity Stated Complaint: RIGHT KNEE PAIN Time Seen by Provider: 03/25/19 18:47 Hx Obtained From: Patient Hx Last Menstrual Period: 02/24/19 ?: No - Pt declines prenancy test, She hasn't been sexaully active lately Onset/Duration: Sudden Onset, Lasting Hours - 1 hr ago re-injured her RT knee while heavy lifiting since she is moving to another place Severity Initially: Moderate Severity Currently: Moderate Pain Intensity: 8 Pain Scale Used: 0-10 Numeric Character: Sharp, Throbbing Aggravating Factor(s): Movement, Weight Bearing, Prolonged Standing, Stairs, Other - RT side lower back pain Alleviating Factor(s): Rest, Nothing - She has not taken any medications today Associated Signs And Symptoms: Negative: Swelling, Redness, Numbness, Tingling Able to Bear Weight: No Related History: Similar Episode/Dx as - RT meniscus tear - Risk Factors Septic Arthritis Risk Factor: Negative Gout Risk Factor: Negative - Allergies/Home Medications Allergies/Adverse Reactions: Allergies Allergy/AdvReac Type Severity Reaction Status Date / Time ondansetron [From Zofran] Allergy Severe ANAPHYLAXIS Verified 03/25/19 18:46 hydrocodone Allergy Itching Verified 03/25/19 18:46 kiwi Allergy Anaphylatic Verified 03/25/19 18:46 Shock strawberry Allergy Anaphylatic Verified 03/25/19 18:46 Shock Seasonal Allergies Allergy Sneezing Uncoded 03/25/19 18:46 Home Medications: Home Medications Acetaminophen with Codeine [Acetaminophen-Cod #3 Tablet] 1 tab PO PRN 03/25/19 [ History] Cyanocobalamin (Vitamin B-12) [Vitamin B-12] 1,000 mcg PO DAILY 03/25/19 [ History Confirmed 03/25/19] Magnesium Oxide [Magnesium] 250 mg PO DAILY 03/25/19 [History Confirmed 03/25/19 ] PMH/Surg Hx/FS Hx/Imm Hx Previously Healthy: Yes Other Endocrine History: anemia Other Respiratory History: seasonal allergies Other Neurological History: RT meniscus injury s/p repair Psychological History: Anxiety, Depression - Surgical History Surgical History: Yes Surgery Procedure, Year, and Place: Tubal ligation 2004;. 2004;. RIGHT Knee February 2018; - Family History Known Family History: Positive: None - Pt denies FMHX Negative: Diabetes - Social History Occupation: Employed Full-time Lives: With Family Alcohol Use: None Substance Use Type: None Smoking Status (MU): Former Smoker Have You Smoked in the Last Year: No When Did the Patient Quit Smoking/Using Tobacco: 13 years ago - Immunization History Most Recent Influenza Vaccination: 08/2017 Most Recent Tetanus Shot: 2016 Vaccination Up to Date: Yes Review of Systems All Other Systems Reviewed And Are Negative: Yes Constitutional: Positive: Negative Skin: Positive: Negative Eyes: Positive: Negative ENT: Positive: Negative Respiratory: Positive: Negative Cardiovascular: Positive: Negative Gastrointestinal: Positive: Negative Genitourinary: Positive: Negative Motor: Positive: Negative Neurovascular: Positive: Negative Musculoskeletal: Positive: Decreased ROM - RT knee and lower back, Other: - RT knee pain and Rt side lower back pain s/p injury while heavy lifiting Neurological: Positive: Negative Psychological: Positive: Negative Is Patient Immunocompromised?: No Physical Exam - Summary Physical Exam Summary: Vital Signs Reviewed: Yes General: well developed, well nourished obese female sitting in the examining table w/o any apparent distress Eyes: Positive: Conjunctiva Clear - PERRLA, EOMI, fundi grossly normal ENT: Positive: Normal ENT inspection, Hearing grossly normal, Pharynx normal, TMs normal Neck: Positive: Supple, Nontender, No Lymphadenopathy Respiratory: Positive: Chest nontender, Lungs clear, Normal breath sounds, No respiratory distress Cardiovascular: Positive: RRR, No Murmur, Pulses Normal, Brisk Capillary Refill Abdomen Description: Positive: Nontender, No Organomegaly, Soft. Negative: CVA Tenderness (R), CVA Tenderness (L) Bowel Sounds: Positive: Present Musculoskeletal: Positive: Strength Intact, No Edema, Rt Knee: Pt is unable to bear weight due to pain. No surface trauma, mil soft tissue swelling on laterasl aspect of the RT knee w/ tenderness to palpation, no obvious effusion. No overlying erythema or warmth. The R knee is without obvious asymmetry or deformity when compared with the L knee. Decreased ROM of RT knee due to pain. Mild tenderness to palpation of the patella, no effusion or ballottement. No tenderness over the infrapatellar tendon. NO tenderness over the medial joint line, No tenderness over the medial or lateral tibial plateaus. No tenderness over the proximal fibular head, No tenderness, fullness or mass of the popliteal fossa. No quadriceps tenderness. No laxity of the ACL. PCL, MCL, or LCL. no collateral ligament laxity to valgus or varus stress. Negative Kristin /Drawer sign. Positive Laurel. Distal motor and neurovascular status intact. Neurological Exam: Normal Psychological Exam: Normal Skin Exam: Normal Triage Information Reviewed: Yes Vital Signs: Initial Vital Signs Temp 97.7 F 03/25/19 18:50 Pulse 89 03/25/19 18:50 Resp 20 03/25/19 18:50 BP 118/79 03/25/19 18:50 Pulse Ox 99 03/25/19 18:50 Knee Pain Course/Dx - Course Course Of Treatment: 38 y/o female presents to the urgent care c/o RT knee pain s/p sudden turn while doing a heavy lifting about 1 hr ago. Pt reports she was packing and lifting heavy boxes since she is moving to another place today. Pt reports Hx of RT knee meniscus repair in 02/2018 w/ DR Brown. She did an MRI and X-ray on which were negative, She saw Dr Brown last week and she referred her for physical Therapy which she was going to start today. Pt also states several injuries to her RT knee in the past since age 11 when she was tackled by a football player. Pt states pain is sharp w/ certain movement, 8/10 and unable to bear weight due to pain, She also has RT side lower back pain which radiated to her RT knee. She has Hx of Sciatica. Pt usually takes Tramadol, Naproxen and [place] for pain, But she has not taken anything today for pain. Pt denies fever, numbness or tingling sensation over the RT lower extremity, SOB , chest pain,abdominal pain, N/V/D. LMP: 02/24/2019, but she declines test. Hx obtained. - Differential Dx/Diagnosis Differential Diagnosis/HQI/PQRI: Contusion, Dislocation, Fracture (Closed), Sprain, Strain, Tendonitis, Other - Meniscus tear Provider Diagnosis: Acute knee pain, Low back strain, Right knee sprain Discharge - Sign-Out/Discharge Documenting (check all that apply): Patient Departure - D/C home All imaging exams completed and their final reports reviewed: No - Discharge Plan Condition: Stable Disposition: HOME Patient Education Materials: Low Back Strain (ED), Knee Sprain (ED) Referrals: Xiang Laurent MD [Primary Care Provider] - 2 Days Deanna Brown MD [Medical Doctor] - 1 Day Additional Instructions: 1-Please continue taken Naproxen PO starting tomorrow after meals to alleviate pain and swelling since you were given Toradol Im inj today 2-Please apply ice, keep your knee immobilized with the splint. Avoid weight bearing w/ the crutches you have at home. avoid heavy lifting or strenuous exercise. 3- Please f/u with your Orthopedic Dr Brown in 1-2 days for further management in your RT knee meniscus tear. 4- Please wear a back support and f/u w/ your PCP for further management in your back strain. - Billing Disposition and Condition Condition: STABLE Disposition: Home
[2019-03-25] MEDS ORDERED: Ketorolac INJ* 30 MG/ML 1 ML VIAL IM ONE (19:30)
--- NOTE | 2019-03-26 11:46 | UC ---
- Progress Note Progress Note: Radiology reports reviewed and unremarkable. No change in management. Course/Dx - Diagnoses Provider Diagnoses: Acute knee pain, Low back strain, Right knee sprain Discharge - Sign-Out/Discharge Documenting (check all that apply): Post-Discharge Follow Up All imaging exams completed and their final reports reviewed: Yes - Discharge Plan Condition: Stable Disposition: HOME Patient Education Materials: Knee Sprain (ED), Low Back Strain (ED) Referrals: Xiang Laurent MD [Primary Care Provider] - 2 Days Deanna Brown MD [Medical Doctor] - 1 Day Additional Instructions: 1-Please continue taken Naproxen PO starting tomorrow after meals to alleviate pain and swelling since you were given Toradol Im inj today 2-Please apply ice, keep your knee immobilized with the splint. Avoid weight bearing w/ the crutches you have at home. avoid heavy lifting or strenuous exercise. 3- Please f/u with your Orthopedic Dr Brown in 1-2 days for further management in your RT knee meniscus tear. 4- Please wear a back support and f/u w/ your PCP for further management in your back strain. - Billing Disposition and Condition Condition: STABLE Disposition: Home
== END 2019-03-25 20:23 | disposition home or self-care (01) ==
LOC: UCCORT 18:04
DX: S83.91XA Sprain of unspecified site of right knee, initial encounter (principal); S39.012A Strain of muscle, fascia and tendon of lower back, initial encounter; M25.561 Pain in right knee; Z87.891 Personal history of nicotine dependence; Z88.8 Allergy status to other drugs, medicaments and biological substances; Z88.5 Allergy status to narcotic agent; Z91.018 Allergy to other foods; Z91.09 Other allergy status, other than to drugs and biological substances; Z87.828 Personal history of other (healed) physical injury and trauma; X58.XXXA Exposure to other specified factors, initial encounter; Y93.89 Activity, other specified; Y92.9 Unspecified place or not applicable
CPT/HCPCS: 72110; 96372; 99212; G0463; J1885

== ENCOUNTER 2020-01-08 13:55 | Emergency (ER) | payer OTHER ==
--- OUTSIDE RECORDS SUMMARY | 2020-01-08 14:02 | XMS REPORT | Continuity of Care Document ---
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 Onset: 07/15/2019 Immunization Dillon Benjamin M.D. Onset: 07/15/2019 Allergy to other foods Dillon Benjamin M.D. Onset: 11/26/2018 Personal history of anaphylaxis Dillon Benjamin M.D. Onset: 11/26/2018 Allergic rhinitis due to pollen Dillon Benjamin M.D. Onset: 11/26/2018 Social History Type Date Description Comments Sex Unknown ETOH Use Denies alcohol use Tobacco Use Start: Unknown End: Unknown Patient is a former smoker Recreational Drug Use Denies Drug Use Tobacco Use Start: Unknown quit over 10 years ago Smoking Status Reviewed: 07/15/19 quit over 10 years ago Allergies, Adverse Reactions, Alerts Active Allergies Reaction Severity Comments Date Hydrocodone Itching 11/26/2018 Kiwi Difficulty breathing, Difficulty 11/26/2018 swallowing Strawberries Difficulty breathing, Difficulty 11/26/2018 swallowing Percocet Itching 07/15/2019 Zofran swelling vomiting 07/15/2019 Medications Active Medications SIG Qnty Indications Ordering Date Provider Epinephrine use as directed 2units Irena Najera, 08/18/2019 0.3mg/0.3ML - mylan generic DIRECTOR WHOLESALE-C Solution Auto-Inject only [facility]# [id number] Ria Allergy 1 by mouth every 90tabs Dillon Benjamin, 02/01/2019 180mg day M.D. Tablets Xyzal Allergy 24HR once daily at 90tabs Irena Najera, 01/27/2019 5mg bedtime [employer]-C Tablets Bupropion HCL ER (XL) Mehran, 300mg MD Xiang Tablets ER 24HR Fluticasone Propionate 1 spray each Mehran, nostril bid. MD Xinag 50mcg/Act Suspension Escitalopram Oxalate 1 tab at night. Mehran, 20mg MD Xiang Tablets Cyclobenzaprine HCL Mehran, 10mg MD Xiang Tablets 1 tab daily. Mehran, 27-0.8mg Tablets MD Xiang Hydroxyzine HCL 1 tab as needed. Unknown 25mg Tablets Ferrous Sulfate 1 tab daily. Mehran, 325(65Fe) MD Xiang mg Tablets Diclofenac Sodium Unknown 75mg Tablets DR Doxepin HCL Unknown 10mg Capsules Immunizations CPT Code Status Date Vaccine Lot # [id number] Given Unknown Influenza Virus Vaccine, Quadrivalent, Split, Preservative Free 34589 Given Unknown Influenza Vaccine Vital Signs Date Vital Result Comment 11/16/2019 11:42am Height 64 inches 5'4" Weight 214.00 lb Weight 97.070 kg Respiratory Rate 20 /min Heart Rate 104 /min O2 % BldC Oximetry 98 % BP Systolic 111 mmHg BP Diastolic 84 mmHg BMI (Body Mass Index) 36.7 kg/m2 08/17/2019 10:11am Height 64 inches 5'4" Weight 212.00 lb Weight 96.163 kg Respiratory Rate 20 /min Heart Rate 110 /min O2 % BldC Oximetry 96 % BP Systolic 112 mmHg BP Diastolic 82 mmHg BMI (Body Mass Index) 36.4 kg/m2 Results Description No Information Available Procedures Description No Information Available Medical Devices Description No Information Available Encounters Type Date Location Provider Dx Diagnosis Office Visit 11/16/2019 [facility] Irena Najera, J30.1 Allergic rhinitis 11:40a DIRECTOR WHOLES[facility]-C due to pollen J30.81 Allergic rhinitis due to animal (cat) (dog) hair and dander J30.2 Other seasonal allergic rhinitis J30.89 Other allergic rhinitis Office Visit 08/17/2019 10:00a [facility] Irena Z87.892 Personal history DAMARIS NajeraP-C of anaphylaxis Z91.018 Allergy to other foods J30.1 Allergic rhinitis due to pollen L50.9 Urticaria, unspecified Office Visit 07/27/2019 2:00p [facility] Irena Z87.892 Personal history DAMARIS NajeraP-C of anaphylaxis Z91.018 Allergy to other foods J30.1 Allergic rhinitis due to pollen L50.9 Urticaria, unspecified Office Visit 07/15/2019 11:00a [facility] Dillon Benjamin, J30.1 Allergic rhinitis M.D. due to pollen Z91.018 Allergy to other foods Z23 Encounter for immunization L50.9 Urticaria, unspecified Assessments Date Code Description Provider 11/16/2019 J30.1 Allergic rhinitis due to pollen Irena Uldrich, DIRECTOR [facility]-C 11/16/2019 J30.81 Allergic rhinitis due to animal (cat) (dog) Irena Uldrich, DIRECT[employer]-C hair and dander 11/16/2019 J30.2 Other seasonal allergic rhinitis Irena Uldrich, DIRECT[employer]C 11/16/2019 J30.89 Other allergic rhinitis Irena Uldrich, DIRECTOR [employer]C 08/17/2019 Z87.892 Personal history of anaphylaxis Dillon Benjamin M.D. 08/17/2019 Z87.892 Personal history of anaphylaxis Irena Uldrich, DIRECT[employer]C 08/17/2019 Z91.018 Allergy to other foods Dillon Benjamin M.D. 08/17/2019 Z91.018 Allergy to other foods Irena Uldrich, DIRECTOR [employer]-C 08/17/2019 J30.1 Allergic rhinitis due to pollen Dillon Benjamin M.D. 08/17/2019 J30.1 Allergic rhinitis due to pollen Irena Uldrich, DIRECTOR [employer]-C 08/17/2019 L50.9 Urticaria, unspecified Dillon Benjamin M.D. 08/17/2019 L50.9 Urticaria, unspecified Irena Uldrich, DIRECTOR [employer]-C 07/27/2019 Z87.892 Personal history of anaphylaxis Dillon Benjamin M.D. 07/27/2019 Z87.892 Personal history of anaphylaxis BRIANDA Palmer 07/27/2019 Z91.018 Allergy to other foods Dillon Benjamin M.D. 07/27/2019 Z91.018 Allergy to other foods BRIANDA Palmer 07/27/2019 J30.1 Allergic rhinitis due to pollen Dillon Benjamin M.D. 07/27/2019 J30.1 Allergic rhinitis due to pollen BRIANDA Palmer 07/27/2019 L50.9 Urticaria, unspecified Dillon Benjamin M.D. 07/27/2019 L50.9 Urticaria, unspecified BRIANDA Palmer 07/15/2019 J30.1 Allergic rhinitis due to pollen Dillon Benjamin M.D. 07/15/2019 Z91.018 Allergy to other foods Dillon Benjamin M.D. 07/15/2019 Z23 Encounter for immunization Dillon Benjamin M.D. 07/15/2019 L50.9 Urticaria, unspecified Dillon Benjamin M.D. Plan of Treatment Future Appointment(s):11/23/2019 10:30 am - Allergy Injection at [facility]03/21/2020 11:20 am - DAMARIS PalmerP-C at [facility]08/22/2020 10:00 am - BRIANDA Palmer at [facility]11/16/2019 - MARYAM Palmer-CJ30.1 Allergic rhinitis due to bzqadsL34.81 Allergic rhinitis due to animal (cat) (dog) hair and ieougpX87.2 Other seasonal allergic dejokwlkH38.89 Other allergic rhinitisRecommendations:Continue all medications as prescribed.Refrain from wearing perfumes/scented colognes while visitingour office. continue the Xyzal in the morning Continue the fluticasone 2 sprays daily Continue the Zyrtec daily at nighttime You may start the allergy shots in a week. Functional Status Description No Information Available Mental Status Description No Information Available Referrals Description No Information Available
--- OUTSIDE RECORDS SUMMARY | 2020-01-08 14:02 | XMS REPORT | Continuity of Care Document ---
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 Problems Provider Date Allergic rhinitis ALYCIA Lepe Onset: 12/28/2019 Allergic rhinitis due to pollen ALYCIA Lepe Onset: 2019 Viremia Jhonathan [facility] MD Onset: 10/28/2017 Anaphylactic reaction due to Jhonathan Sabillon MD Onset: 09/09/2017 unspecified food, subsequent encounter Allergy to other foods Jhonathan Sabillon MD Onset: 09/09/2017 Social History Type Date Description Comments Sex Unknown Tobacco Use Start: Unknown End: Unknown Former Cigarette Smoker Smoking Status Reviewed: 12/28/19 Former Cigarette Smoker Tobacco Use Start: Unknown End: Unknown Patient is a former smoker Allergies, Adverse Reactions, Alerts Active Allergies Reaction Severity Comments Date Hydrocodone 09/09/2017 Medications Active Medications SIG Qnty Indications Ordering Provider Date Fluticasone Propionate spray 2 sprays 16gm J30.1 Jhonathan Barrera 12/28/2019 in each nostril MD Ridge 50mcg/Act Suspension once daily Cetirizine HCL Take 1 Tablet 30tabs Z91.018 Gadiel Wright, 06/23/2018 10mg By Mouth Once RPA-C Tablets Daily In The Evening Epipen 2-Deshawn Use as directed 4units Jhonathan Barrera 11/13/2017 0.3mg/0.3ML MD Ridge Solution Auto-Inject Escitalopram Oxalate Unknown Ferrous Fumarate Unknown 324(106Fe) mg Tablets Unknown Cyclobenzaprine HCL Unknown 10mg Tablets Bupropion HCL Unknown 75mg Tablets Hydroxyzine HCL 1 to 3 tabs Unknown 10mg every 6 hours Tablets as needed Immunizations Description No Information Available Vital Signs Date Vital Result Comment 12/28/2019 2:40pm BP Systolic 120 mmHg BP Diastolic 78 mmHg Height 64 inches 5'4" Heart Rate 83 /min Respiratory Rate 16 /min O2 % BldC Oximetry 100 % 11/11/2017 2:20pm BP Systolic 128 mmHg BP Diastolic 90 mmHg Height 64 inches 5'4" Weight 193.00 lb BMI (Body Mass Index) 33.1 kg/m2 Heart Rate 107 /min Respiratory Rate 12 /min Body Temperature 99.2 F O2 % BldC Oximetry 94 % Results Test Acquired Date Facility Test Result H/L Range Note Laboratory test 12/28/2019 [facility] <pending> finding [address] [facility] [place] [address] [phone] Procedures Description No Information Available Medical Devices Description No Information Available Encounters Type Date Location Provider Dx Diagnosis Office Visit 12/28/2019 [facility] Thayer91.018 Allergy to other 2:30p Fenstermacher, foods ALYCIA J30.1 Allergic rhinitis due to pollen J30.89 Other allergic rhinitis Assessments Date Code Description Provider 12/28/2019 Z91.018 Allergy to other foods ALYCIA Lepe 12/28/2019 J30.1 Allergic rhinitis due to pollen JENSEN Lepe 12/28/2019 J30.89 Other allergic rhinitis ALYCIA Lepe Plan of Treatment Future Appointment(s):02/22/2020 1:30 pm - ALYCIA Lepe at [facility]/03/2020 - ISRAEL LepeCZ91.018 Allergy to other foodsComments:Continue strict avoidance of strawberry and kiwi. Continue to carry your EpiPen at all times due to the severity of your reactions associated with these foods.J30.1 Allergic rhinitis due to pollenNew Medication: Fluticasone Propionate 50 mcg/Act - spray 2 sprays in each nostril once dailyComments:Patient with allergic rhinitis. Patient is interested in starting immunotherapy. Patient with history of severe systemic reaction following skin testing at another allergy office. I will order RAST S&E allergy testing. I will check a total IgE level. I will give Fluticasone NS for daily prophylaxis of the nose. I will continue Cetirizine as directed.Follow up:2 weeks.J30.89 Other allergic rhinitis Functional Status Description No Information Available Mental Status Description No Information Available Referrals Description No Information Available
[2020-01-08 14:16] VITALS: BP 148/81
--- NOTE | 2020-01-08 14:53 | UC ---
Skin Complaint HPI - HPI Summary HPI Summary: 39 y/o female presents to the urgent care c/o rash in her anterior thighs, RT axilla and upper back since 01/05/2020. She saw her PCP and was Dx Prednisone 40 mg PO for 5 days. She has taken only 20mg PO daily and still has 8 tabs PO left. However she states her rash and itchiness still present. She has taken more Benadryl which helps her w/ itchiness. Pt reports Hx of severe allergies to kiwi and strawberries, but she can't recall being exposed to them or eating them. Pt denies eating something different or changing detergents or body lotions or change in medications lately. Pt states her tongue feels itchy at times, but denies SOB, difficulty breathing, throat swelling, hoarseness, wheezing, chest pain, dizziness, abdominal pain, N/V/D, Hx of MRSA. - History of Current Complaint Chief Complaint: UCSkin Time Seen by Provider: 01/08/20 14:51 Stated Complaint: ALLERGIC REACTION Hx Obtained From: Patient Hx Last Menstrual Period: 02/24/19 ?: No Onset/Duration: Gradual Onset, Lasting Days - 3 days, Still Present Skin Exposure Onset/Duration: Days Ago - 3 days Timing: Constant Onset Severity: Mild Current Severity: Moderate Pain Intensity: 0 Pain Scale Used: 0-10 Numeric Location: Discrete - back and b/l thighs and RT axilla Character: Pruritus, Redness - itchy rash Aggravating Factor(s): Touch Alleviating Factor(s): Antihistamines, Other - Pt was Rx Prednisone PO but only took 1 tab yesterday Associated Signs & Symptoms: Positive: Rash. Negative: Difficulty Breathing, Fever, Chills, Cough, Wheezing, Hoarseness, Throat Tightening, Drainage, Tenderness Related History: Other: - Pt w/ multiple allergies, but can't recall any eating anything different or change in her medications recently - Allergy/Home Medications Allergies/Adverse Reactions: Allergies Allergy/AdvReac Type Severity Reaction Status Date / Time ondansetron [From Zofran] Allergy Severe ANAPHYLAXIS Verified 01/08/20 14:03 acetaminophen [From Percocet] Allergy Itching Verified 01/08/20 14:03 hydrocodone Allergy Itching Verified 01/08/20 14:03 kiwi Allergy Anaphylatic Verified 01/08/20 14:03 Shock oxycodone [From Percocet] Allergy Itching Verified 01/08/20 14:03 strawberry Allergy Anaphylatic Verified 01/08/20 14:03 Shock Seasonal Allergies Allergy Sneezing Uncoded 01/08/20 14:03 Home Medications: Home Medications Cyclobenzaprine TAB* [Flexeril 10 MG TAB*] 10 mg PO TID PRN 10/25/17 [History Confirmed 01/08/20] Escitalopram * [Lexapro 20 mg (NF)] 20 mg PO QPM 10/25/17 [History Confirmed ] Ferrous Sulfate TAB* 325 mg PO QAM 10/25/17 [History Confirmed 01/08/20] hydrOXYzine HCL TAB* [Atarax 25 MG TAB*] 25 mg PO QID PRN 10/25/17 [History Confirmed 01/08/20] EPINEPHphrine SYR* 1 syr IM ONCE 02/19/18 [History Confirmed 01/08/20] Vitamin TAB* 1 tab DAILY 08/09/18 [History Confirmed 01/08/20] buPROPion SR TAB* [Wellbutrin SR TAB*] 50 mg QAM 08/09/18 [History Confirmed ] Diclofenac Sodium EC TAB* [Voltaren EC TAB*] 25 mg PO TID PRN 08/10/19 [History Confirmed 01/08/20] Doxepin (NF) 25 mg PO BEDTIME PRN 08/10/19 [History Confirmed 01/08/20] Cetirizine* [ZyrTEC 10 MG TAB*] 10 mg PO QPM 01/08/20 [History Confirmed ] Doxepin HCl 10 mg QPM 01/08/20 [History Confirmed 01/08/20] Omeprazole Magnesium [Acid Lead Assembler] 20 mg BID 01/08/20 [History Confirmed ] Triamcinolone 0.5% CREAM(NF) [Triamcinolone 0.5% CREAM*] 1 applic TOPICAL BID # 1 tube 01/08/20 [Rx] predniSONE [Prednisone 20 MG TAB] 2 tab PO DAILY 01/08/20 [History Confirmed ] PMH/Surg Hx/FS Hx/Imm Hx Previously Healthy: Yes GI/ History: Gastroesophageal Reflux Psychological History: Anxiety, Depression - Surgical History Surgical History: Yes Surgery Procedure, Year, and Place: Tubal ligation 2004;. 2004;. RIGHT Knee February 2018;. NASAL - DEVIATED SEPTUM - Family History Known Family History: Positive: None - Pt denies PMHX, Unknown Negative: Diabetes - Social History Occupation: Unemployed Lives: With Family Alcohol Use: None Substance Use Type: None Smoking Status (MU): Former Smoker Have You Smoked in the Last Year: No When Did the Patient Quit Smoking/Using Tobacco: 13 years ago - Immunization History Most Recent Influenza Vaccination: 08/2017 Most Recent Tetanus Shot: 2016 Vaccination Up to Date: Yes Review of Systems All Other Systems Reviewed And Are Negative: Yes Constitutional: Positive: Negative Skin: Positive: Rash - itchy rash on B/L thighs, upper back and RT axilla Eyes: Positive: Negative ENT: Positive: Negative, Other - tongue itching Respiratory: Positive: Negative Cardiovascular: Positive: Negative Gastrointestinal: Positive: Negative Genitourinary: Positive: Negative Motor: Positive: Negative Neurovascular: Positive: Negative Musculoskeletal: Positive: Negative Neurological/Mental Status: Positive: Negative Psychological: Positive: Negative Is Patient Immunocompromised?: No Physical Exam - Summary Physical Exam Summary: Vital Signs Reviewed: Yes General: well appearing, well nourished female in no acute apparent pain distress, sitting comfortably on examining table Eye Exam: Normal Eyes: Positive: Conjunctiva Clear - PERRLA< EOMI, fundi grossly normal ENT: Positive: Normal ENT inspection, Hearing grossly normal, Pharynx normal, TMs normal Neck: Positive: Supple, Nontender, No Lymphadenopathy Respiratory: Positive: Chest non-tender, Lungs clear, Normal breath sounds, No respiratory distress Cardiovascular: Positive: RRR, No Murmur, Pulses Normal, Brisk Capillary Refill Abdomen Description: Positive: Nontender, No Organomegaly, Soft. Negative: CVA Tenderness (R), CVA Tenderness (L) Bowel Sounds: Positive: Present Musculoskeletal: Positive: Strength Intact, ROM Intact, No Edema Neurological: Positive: Alert, Muscle Tone Normal Psychological Exam: Normal Skin: Positive: B/L anterior thigh and RT axilla and upper back w/ discrete scattered erythematous maculopapular eruption w/ mild signs of excoriation, no drainage observed, non tender to palpation. . Triage Information Reviewed: Yes Vital Signs: Initial Vital Signs Temp 97.8 F 01/08/20 14:08 Pulse 96 01/08/20 14:08 Resp 16 01/08/20 14:08 BP 148/81 01/08/20 14:08 Pulse Ox 99 01/08/20 14:08 Course/Dx - Course Course Of Treatment: 39 y/o female presents to the urgent care c/o rash in her anterior thighs, RT axilla and upper back since 01/05/2020. She saw her PCP and was Dx Prednisone 40 mg PO for 5 days. She has taken only 20mg PO daily and still has 8 tabs PO left. However she states her rash and itchiness still present. She has taken more Benadryl which helps her w/ itchiness. Pt reports Hx of severe allergies to kiwi and strawberries, but she can't recall being exposed to them or eating them. Pt denies eating something different or changing detergents or body lotions or change in medications lately. Pt states her tongue feels itchy at times, but denies SOB, difficulty breathing, throat swelling, hoarseness, wheezing, chest pain, dizziness, abdominal pain, N/V/D, Hx of MRSA. Hx obtained. Pt w/ possible conntact dermatitis on B/L anterior thighs, upper back and Rt axilla on examination. Pt Given Methylprednisolone IM inj by nurse. Pt tolerated well IM inj. Pt has not taken well Prednisone tabs Rx by her PCP. Pt explained and advised to start taken them tomorrow 2 tabs PO qd . Also advised to continue taking Benadryl PO. and Rx Traimcinolone topical cream as directed below to alleviate symptoms. Pt's BP is elevated today and advised to decrease salt in diet, monitor BP and f/u with PCP if BP continues to be elevated for further management. D/C instructions explained. Pt understood and agreed w/ plan of care and left the clinic ambulating and hemodynamically stable. - Differential Diagnoses - Skin Complaint Differential Diagnoses: Abscess, Allergic Reaction, Contact Dermatitis, Local Allergic Reaction, Medication; Adverse Reaction, Poison [place], Poison [place], Scabies - Diagnoses Provider Diagnosis: Contact dermatitis, Elevated BP without diagnosis of hypertension Discharge ED - Sign-Out/Discharge Documenting (check all that apply): Patient Departure - d/C home All imaging exams completed and their final reports reviewed: No Studies - Discharge Plan Condition: Stable Disposition: HOME Prescriptions: Triamcinolone 0.5% CREAM(NF) [Triamcinolone 0.5% CREAM*] 1 applic TOPICAL BID # 1 tube Patient Education Materials: Contact Dermatitis (ED) Referrals: Xiang Laurent MD [Primary Care Provider] - 3 Days Tahir Sabillon MD [Medical Doctor] - 3 Days Anabela Hayes [Medical Doctor] - 3 Days Additional Instructions: 1-Please Start taking Prednisone PO taper dose starting tomorrow as directed 2 tabs PO once a day. 2- Continue taking Benadryl PO to alleviate itchiness. Apply triamcinolone topical l cream as directed. Avoid exposure to the sun. 3-If symptoms do not improve or worsen please f/u with your Manufacturing Clerk DR Sabillon or Flotation Tank Operator in 2-3 days for further evaluation and treatment. 4- If symptoms worsen and you develop SOB or difficulty breathing please go immediately to the ER for further management. 5- Your BP is elevated today advised to decrease salt in diet, monitor BP and f/ u with PCP for further management. - Billing Disposition and Condition Condition: STABLE Disposition: Home
[2020-01-08] MEDS ORDERED: methylPREDNISolone 125 MG* 2 ML VIAL IM ONE (15:05)
[2020-01-08] MEDS ORDERED: Famotidine TAB* 20 MG PO ONE (15:06)
== END 2020-01-08 15:44 | disposition home or self-care (01) ==
LOC: UCCORT 13:55
DX: L25.9 Unspecified contact dermatitis, unspecified cause (principal); R03.0 Elevated blood-pressure reading, without diagnosis of hypertension; K21.9 Gastro-esophageal reflux disease without esophagitis; F41.9 Anxiety disorder, unspecified; F32.9 Major depressive disorder, single episode, unspecified; Z91.018 Allergy to other foods; Z91.09 Other allergy status, other than to drugs and biological substances; Z88.5 Allergy status to narcotic agent; Z88.6 Allergy status to analgesic agent; Z88.8 Allergy status to other drugs, medicaments and biological substances; Z87.891 Personal history of nicotine dependence; Z79.899 Other long term (current) drug therapy
CPT/HCPCS: 96372; 99212; A9270-GY; G0463; J2930